=== PATIENT | male | born 1950 | race Caucasian/White ===

== ENCOUNTER 2017-08-08 14:16 | Emergency (ER) | payer MEDICARE, OTHER ==
[~2017-08-08] VITALS: Ht 175.3 cm; Wt 115.0 kg
[~2017-08-08 14:16] MED LIST: HYDR-569 PO
[2017-08-08 15:33] VITALS: BP 148/54
[2017-08-08] MEDS ORDERED: ondansetron 4mg rapidly disintigrating tab PO ONE (15:35)
[2017-08-08] MEDS ORDERED: HYDROcodone/acetaminophen 10/325mg tab PO ONE (15:35)
[2017-08-08] MEDS ORDERED: GABA-532 PO (15:36)
[2017-08-08] MEDS ORDERED: OXYC-150 PO (15:36)
== END 2017-08-08 15:52 | disposition home or self-care (01) ==
LOC: ER 14:17
DX: M79.604 Pain in right leg (principal); E11.41 Type 2 diabetes mellitus with diabetic mononeuropathy; Z79.899 Other long term (current) drug therapy; Z98.890 Other specified postprocedural states
CPT/HCPCS: 99284

== ENCOUNTER 2017-10-22 14:20 | Emergency (ER) | payer MEDICARE, OTHER ==
[~2017-10-22] VITALS: Ht 175.3 cm; Wt 101.8 kg
[~2017-10-22 14:20] MED LIST changes: +GABA-532 PO; +OXYC-150 PO
[2017-10-22] MEDS ORDERED: normal saline 1000ML IV soln IVB ONE (14:30)
[2017-10-22] MEDS ORDERED: ondansetron/PF 4mg/2ml inj IV ONE (14:30)
[2017-10-22] MEDS: morphine 4 MG/ML inj SYRINge IV PRN ×2 (14:44→15:58)
[2017-10-22 14:50] LABS: BASOPHILS # (AUTO) 0.1 X10'3 (0-0.2); BASOPHILS % (AUTO) 0.7 % (0-1); EOSINOPHILS # (AUTO) 0.2 X10'3 (0-0.9); EOSINOPHILS % (AUTO) 1.7 % (0-6); HEMATOCRIT 40.4 % (42.0-52.0); LYMPHOCYTES # (AUTO) 1.7 X10'3 (1.1-4.8); LYMPHOCYTES % (AUTO) 16.6 % (21-51); MEAN CORPUSCULAR HEMOGLOBIN 30.9 PG (27.0-31.0); MEAN CORPUSCULAR HGB CONC 34.6 % (33.0-36.5); MEAN CORPUSCULAR VOLUME 89.3 FL (78-98); MEAN PLATELET VOLUME 7.8 FL (7.4-10.4); MONOCYTES # (AUTO) 0.9 X10'3 (0-0.9); MONOCYTES % (AUTO) 8.4 % (2-12); NEUTROPHILS # (AUTO) 7.6 X10'3 (1.8-7.7); NEUTROPHILS % (AUTO) 72.6 % (42-75); PLATELET COUNT 346 X10'3 (140-440); RED BLOOD COUNT 4.53 X10'6 (4.70-6.10); RED CELL DISTRIBUTION WIDTH 13.9 % (11.5-14.5); WHITE BLOOD COUNT 10.5 X10'3 (4.5-11.0)
[2017-10-22] MEDS ORDERED: methylnaltrexone br 12mg/0.6ml inj***SubQ only SQ ONE (15:45)
[2017-10-22] MEDS ORDERED: lactulose 20gm/30ml cup PO ONE (15:45)
[2017-10-22 16:11] LABS: ALANINE AMINOTRANSFERASE 21 U/L (12-78); ALBUMIN 3.4 G/DL (3.4-5.0); ALBUMIN/GLOBULIN RATIO 0.8 (1.1-1.5); ALKALINE PHOSPHATASE 74 IU/L (46-116); ANION GAP 11 (8-16); ASPARTATE AMINO TRANSFERASE 15 U/L (10-37); BILIRUBIN,TOTAL 0.4 MG/DL (0.1-1.0); BLOOD UREA NITROGEN 29 MG/DL (7-18); BUN/CREATININE RATIO 23.8 (5.4-32.0); CALCIUM 9.6 MG/DL (8.5-10.1); CHLORIDE 100 MMOL/L (99-107); CREATININE 1.22 MG/DL (0.60-1.10); GLUCOSE 151 MG/DL (70-104); LIPASE 52 U/L (73-393); POTASSIUM 3.9 MMOL/L (3.5-5.1); SODIUM 137 MMOL/L (135-145); TOTAL CARBON DIOXIDE 26.4 MMOL/L (24-32); TOTAL PROTEIN 7.6 G/DL (6.4-8.2); eGFR 59 ML/MIN
[2017-10-22] MEDS ORDERED: POLY17PO10 PO (16:29)
[2017-10-22 16:44] VITALS: BP 144/71
== END 2017-10-22 16:45 | disposition home or self-care (01) ==
LOC: ER 14:20
DX: K59.03 Drug induced constipation (principal); T40.605A Adverse effect of unspecified narcotics, initial encounter; G89.29 Other chronic pain; M54.9 Dorsalgia, unspecified; I10 Essential (primary) hypertension; R11.2 Nausea with vomiting, unspecified; R06.02 Shortness of breath; I25.2 Old myocardial infarction; E11.9 Type 2 diabetes mellitus without complications; Z98.890 Other specified postprocedural states; Z79.899 Other long term (current) drug therapy; Z88.8 Allergy status to other drugs, medicaments and biological substances; Y92.89 Other specified places as the place of occurrence of the external cause
CPT/HCPCS: 36415; 71045; 74018; 80053; 83690; 84484; 85025; 93005; 96361; 96372; 96374; 96375; 96376; 99285; J2270; J2405; J7030

== ENCOUNTER 2017-12-16 16:28 | Inpatient (IN) | payer MEDICARE, OTHER ==
[~2017-12-16] VITALS: Ht 177.8 cm; Wt 100.0 kg
[~2017-12-16 16:28] MED LIST changes: +HYDR-4383 PO; -HYDR-569 PO
[2017-12-16] MEDS ORDERED: diazepam 5mg tablet PO ONE (17:25)
[2017-12-16] MEDS ORDERED: ketorolac trometh inj. 60 MG/2 ML VIAL IM ONE (17:25)
[2017-12-16] MEDS ORDERED: oxyCODONE/APAP 10/325mg tablet PO ONE (17:25)
[2017-12-16 17:53] LABS: BASOPHILS % (AUTO) 0.4 % (0-1); EOSINOPHILS # (AUTO) 0.3 X10'3 (0-0.9); EOSINOPHILS % (AUTO) 2.5 % (0-6); HEMATOCRIT 38.3 % (42.0-52.0); HEMOGLOBIN 12.8 g/dl (14.0-17.9); LYMPHOCYTES # (AUTO) 2.2 X10'3 (1.1-4.8); LYMPHOCYTES % (AUTO) 20.8 % (21-51); MEAN CORPUSCULAR HEMOGLOBIN 29.9 PG (27.0-31.0); MEAN CORPUSCULAR HGB CONC 33.5 % (33.0-36.5); MEAN CORPUSCULAR VOLUME 89.4 FL (78-98); MEAN PLATELET VOLUME 7.6 FL (7.4-10.4); MONOCYTES % (AUTO) 9.4 % (2-12); NEUTROPHILS # (AUTO) 7.2 X10'3 (1.8-7.7); NEUTROPHILS % (AUTO) 66.9 % (42-75); PLATELET COUNT 359 X10'3 (140-440); RED BLOOD COUNT 4.28 X10'6 (4.70-6.10); WHITE BLOOD COUNT 10.7 X10'3 (4.5-11.0)
[2017-12-16 18:01] LABS: ALANINE AMINOTRANSFERASE 20 U/L (12-78); ALBUMIN 3.2 G/DL (3.4-5.0); ALBUMIN/GLOBULIN RATIO 0.8 (1.1-1.5); ALKALINE PHOSPHATASE 83 IU/L (46-116); ANION GAP 9 (8-16); ASPARTATE AMINO TRANSFERASE 15 U/L (10-37); BILIRUBIN,TOTAL 0.3 MG/DL (0.1-1.0); BLOOD UREA NITROGEN 26 MG/DL (7-18); BUN/CREATININE RATIO 21.1 (5.4-32.0); CALCIUM 9.8 MG/DL (8.5-10.1); CHLORIDE 100 MMOL/L (99-107); CREATININE 1.23 MG/DL (0.60-1.10); GLUCOSE 254 MG/DL (70-104); POTASSIUM 5.3 MMOL/L (3.5-5.1); SODIUM 136 MMOL/L (135-145); TOTAL CARBON DIOXIDE 27.4 MMOL/L (24-32); TOTAL PROTEIN 7.2 G/DL (6.4-8.2); eGFR 59 ML/MIN
[2017-12-16 18:08] LABS: MAGNESIUM 1.9 MG/DL (1.5-2.4)
[2017-12-16] MEDS ORDERED: aspirin 325mg tablet PO ONE ×2 (18:30→21:15)
[2017-12-16] MEDS ORDERED: normal saline 1000ML IV soln IVB ONE (19:25)
[2017-12-16] MEDS ORDERED: iohexol 350MG/ML 100ml bottle IV ONE (19:52)
[2017-12-16] MEDS ORDERED: PANT40TA4 PO (19:54)
[2017-12-16] MEDS ORDERED: METO25TA6 PO (19:54)
[2017-12-16] MEDS ORDERED: FINA5TAB11 PO (19:54)
[2017-12-16] MEDS ORDERED: IBUP-1986 PO (19:54)
[2017-12-16] MEDS ORDERED: GLIP5TAB13 PO (19:54)
[2017-12-16] MEDS ORDERED: DULO60CA64 PO (19:54)
[2017-12-16] MEDS ORDERED: dextrose 50%-water 50ml dispensing syringe IV PRN ×2 (21:10)
[2017-12-16] MEDS ORDERED: MESSAGE TO PHARMACY PO ONE (21:10)
[2017-12-16] MEDS ORDERED: ondansetron/PF 4mg/2ml inj IV PRN (21:10)
[2017-12-16] MEDS ORDERED: acetaminophen 325mg tablet PO PRN (21:10)
[2017-12-16] MEDS ORDERED: magnesium hydroxide 30ml (MOM) UD suspension PO PRN (21:10)
[2017-12-16] MEDS ORDERED: mag hydrox/Alum hydrox/simeth 30ml oral suspension PO PRN (21:10)
[2017-12-16] MEDS ORDERED: dextrose ORAL solution 15 GM/59 ML bottle PO PRN ×2 (21:10)
[2017-12-16] MEDS ORDERED: glucagon, human recombinant 1mg kit SUBCUT PRN (21:10)
[2017-12-16 21:50] LABS: HEMOGLOBIN A1C 8.8 % (4.5-6.2)
[2017-12-16 22:00] VITALS: BP 152/86
[2017-12-16] MEDS ORDERED: oxyCODONE/APAP 10/325mg tablet PO PRN (22:05)
[2017-12-17] MEDS ORDERED: oxyCODONE/APAP 10/325mg tablet PO PRN
[2017-12-17] MEDS: oxyCODONE/APAP 10/325mg tablet PO PRN ×5 (02:41→22:30)
[2017-12-17 05:00] VITALS: BP 154/79
[2017-12-17 06:20] LABS: BASOPHILS # (AUTO) 0.1 X10'3 (0-0.2); BASOPHILS % (AUTO) 0.8 % (0-1); EOSINOPHILS # (AUTO) 0.5 X10'3 (0-0.9); EOSINOPHILS % (AUTO) 5.5 % (0-6); HEMATOCRIT 36.2 % (42.0-52.0); HEMOGLOBIN 12.1 g/dl (14.0-17.9); LYMPHOCYTES # (AUTO) 2.5 X10'3 (1.1-4.8); LYMPHOCYTES % (AUTO) 27.4 % (21-51); MEAN CORPUSCULAR HEMOGLOBIN 30.2 PG (27.0-31.0); MEAN CORPUSCULAR HGB CONC 33.6 % (33.0-36.5); MEAN CORPUSCULAR VOLUME 89.9 FL (78-98); MEAN PLATELET VOLUME 7.9 FL (7.4-10.4); MONOCYTES # (AUTO) 0.8 X10'3 (0-0.9); MONOCYTES % (AUTO) 9.3 % (2-12); NEUTROPHILS # (AUTO) 5.1 X10'3 (1.8-7.7); PLATELET COUNT 326 X10'3 (140-440); RED BLOOD COUNT 4.02 X10'6 (4.70-6.10); RED CELL DISTRIBUTION WIDTH 13.8 % (11.5-14.5)
[2017-12-17 06:34] LABS: ALANINE AMINOTRANSFERASE 20 U/L (12-78); ALBUMIN 2.7 G/DL (3.4-5.0); ALBUMIN/GLOBULIN RATIO 0.7 (1.1-1.5); ALKALINE PHOSPHATASE 77 IU/L (46-116); ANION GAP 9 (8-16); ASPARTATE AMINO TRANSFERASE 14 U/L (10-37); BILIRUBIN,TOTAL 0.4 MG/DL (0.1-1.0); BLOOD UREA NITROGEN 28 MG/DL (7-18); BUN/CREATININE RATIO 21.4 (5.4-32.0); CALCIUM 8.9 MG/DL (8.5-10.1); CHLORIDE 99 MMOL/L (99-107); CREATININE 1.31 MG/DL (0.60-1.10); GLUCOSE 218 MG/DL (70-104); POTASSIUM 4.3 MMOL/L (3.5-5.1); SODIUM 136 MMOL/L (135-145); TOTAL CARBON DIOXIDE 27.7 MMOL/L (24-32); TOTAL PROTEIN 6.5 G/DL (6.4-8.2); eGFR 54 ML/MIN
[2017-12-17] MEDS: metoprolol tartrate 25mg tablet PO SCH ×2 (07:24→20:11)
[2017-12-17] MEDS: finasteride 5mg tablet PO SCH (07:24)
[2017-12-17] MEDS: pantoprazole 40mg Tablet.DR PO SCH (07:24)
[2017-12-17] MEDS: gabapentin 300mg capsule PO SCH ×3 (07:24→20:11)
[2017-12-17] MEDS: duloxetine 30mg CAPSULE.DR PO SCH (07:24)
[2017-12-17] MEDS: heparin, porcine 5000 units/ml vial SQ SCH ×2 (07:25→20:11)
[2017-12-17] MEDS ORDERED: DULOXETINE HCL PO SCH (08:00)
[2017-12-17] MEDS ORDERED: aspirin 325mg tablet PO SCH (08:30)
[2017-12-17] MEDS: aspirin 81mg tablet.DR PO SCH ×2 (08:30→10:07)
[2017-12-17 09:06] LABS: CHOL/HDL RATIO 8.2 (0.00-4.99); CHOLESTEROL 247 MG/DL (0-200); HDL CHOLESTEROL 30 MG/DL (35-60); LDL CHOLESTEROL 146 MG/DL (50-100); TRIGLYCERIDES 365 MG/DL (20-135)
[2017-12-17] MEDS ORDERED: CAFFEINE CITRATE 60 MG/3 ML injection vial IV PRN (09:45)
[2017-12-17] MEDS ORDERED: regadenoson 0.4mg/5ml syringe IV ONE (09:45)
[2017-12-17] MEDS ORDERED: metoprolol tartrate 1mg/ml inj IV PRN (09:45)
[2017-12-17] MEDS ORDERED: nitroGLYCERIN 0.4mg SUBLingual tab SL PRN (09:45)
[2017-12-17 10:00] VITALS: BP 143/88
[2017-12-17] MEDS ORDERED: pneumococcal 23-VAL P-sac vacc 25 mcg/0.5ml vial IMVAC ONE (10:00)
[2017-12-17] MEDS: atorvastatin 20mg tablet PO SCH (10:07)
[2017-12-17] MEDS: insulin Lispro (HumaLOG) vial - multi-dose SQ SCH ×3 (10:09→18:48)
[2017-12-17 14:00] VITALS: BP 133/72
[2017-12-17 18:00] VITALS: BP 136/60
[2017-12-17] MEDS: insulin glargine (Lantus) pen - multi-dose SQ SCH (21:17)
[2017-12-17 22:00] VITALS: BP 125/69
[2017-12-18] VITALS (11 sets, daily range): BP systolic 111–185; BP diastolic 61–85
[2017-12-18] MEDS: oxyCODONE/APAP 10/325mg tablet PO PRN ×5 (02:01→20:27)
[2017-12-18 05:49] LABS: HEMATOCRIT 36.5 % (42.0-52.0); HEMOGLOBIN 12.5 g/dl (14.0-17.9); MEAN CORPUSCULAR HEMOGLOBIN 30.4 PG (27.0-31.0); MEAN CORPUSCULAR HGB CONC 34.2 % (33.0-36.5); MEAN CORPUSCULAR VOLUME 88.9 FL (78-98); RED BLOOD COUNT 4.11 X10'6 (4.70-6.10); WHITE BLOOD COUNT 8.5 X10'3 (4.5-11.0)
[2017-12-18 05:50] LABS: BASOPHILS # (AUTO) 0.1 X10'3 (0-0.2); BASOPHILS % (AUTO) 0.6 % (0-1); EOSINOPHILS # (AUTO) 0.5 X10'3 (0-0.9); EOSINOPHILS % (AUTO) 5.5 % (0-6); LYMPHOCYTES # (AUTO) 2.4 X10'3 (1.1-4.8); LYMPHOCYTES % (AUTO) 28.4 % (21-51); MEAN PLATELET VOLUME 7.9 FL (7.4-10.4); MONOCYTES # (AUTO) 0.7 X10'3 (0-0.9); MONOCYTES % (AUTO) 8.2 % (2-12); NEUTROPHILS # (AUTO) 4.8 X10'3 (1.8-7.7); NEUTROPHILS % (AUTO) 57.3 % (42-75); PLATELET COUNT 349 X10'3 (140-440); RED CELL DISTRIBUTION WIDTH 12.9 % (11.5-14.5)
[2017-12-18 06:01] LABS: ALANINE AMINOTRANSFERASE 20 U/L (12-78); ALBUMIN 2.8 G/DL (3.4-5.0); ALBUMIN/GLOBULIN RATIO 0.7 (1.1-1.5); ALKALINE PHOSPHATASE 81 IU/L (46-116); ANION GAP 11 (8-16); ASPARTATE AMINO TRANSFERASE 16 U/L (10-37); BILIRUBIN,TOTAL 0.3 MG/DL (0.1-1.0); BLOOD UREA NITROGEN 27 MG/DL (7-18); CALCIUM 8.9 MG/DL (8.5-10.1); CHLORIDE 98 MMOL/L (99-107); CREATININE 1.23 MG/DL (0.60-1.10); GLUCOSE 194 MG/DL (70-104); POTASSIUM 4.1 MMOL/L (3.5-5.1); SODIUM 136 MMOL/L (135-145); TOTAL CARBON DIOXIDE 26.8 MMOL/L (24-32); TOTAL PROTEIN 6.7 G/DL (6.4-8.2); eGFR 59 ML/MIN
[2017-12-18] MEDS: gabapentin 300mg capsule PO SCH ×3 (08:00→21:35)
[2017-12-18] MEDS ORDERED: CAFFEINE CITRATE 60 MG/3 ML injection vial IV ONE (09:32)
[2017-12-18] MEDS ORDERED: regadenoson 0.4mg/5ml syringe IV ONE ×2 (09:32→09:45)
[2017-12-18] MEDS ORDERED: pneumococcal 23-VAL P-sac vacc 25 mcg/0.5ml vial IMVAC ONE (10:00)
[2017-12-18] MEDS: atorvastatin 20mg tablet PO SCH (11:30)
[2017-12-18] MEDS: duloxetine 30mg CAPSULE.DR PO SCH (11:30)
[2017-12-18] MEDS: pantoprazole 40mg Tablet.DR PO SCH (11:32)
[2017-12-18] MEDS: metoprolol tartrate 25mg tablet PO SCH ×2 (11:32→20:28)
[2017-12-18] MEDS: finasteride 5mg tablet PO SCH (11:32)
[2017-12-18] MEDS: aspirin 81mg tablet.DR PO SCH (11:33)
[2017-12-18] MEDS: heparin, porcine 5000 units/ml vial SQ SCH ×2 (11:33→20:28)
[2017-12-18] MEDS: insulin Lispro (HumaLOG) vial - multi-dose SQ SCH ×2 (13:47→18:54)
[2017-12-18] MEDS: insulin glargine (Lantus) pen - multi-dose SQ SCH (21:34)
[2017-12-18] MEDS: diazepam 5mg tablet PO SCH (21:35)
[2017-12-19] MEDS: oxyCODONE/APAP 10/325mg tablet PO PRN ×5 (01:38→21:27)
[2017-12-19 05:00] VITALS: BP 126/66
[2017-12-19 07:31] LABS: BASOPHILS % (AUTO) 0.6 % (0-1); EOSINOPHILS # (AUTO) 0.4 X10'3 (0-0.9); EOSINOPHILS % (AUTO) 4.7 % (0-6); HEMOGLOBIN 13.1 g/dl (14.0-17.9); LYMPHOCYTES # (AUTO) 2.2 X10'3 (1.1-4.8); LYMPHOCYTES % (AUTO) 27.4 % (21-51); MEAN CORPUSCULAR HEMOGLOBIN 30.5 PG (27.0-31.0); MEAN CORPUSCULAR HGB CONC 34.5 % (33.0-36.5); MEAN CORPUSCULAR VOLUME 88.4 FL (78-98); MONOCYTES # (AUTO) 0.7 X10'3 (0-0.9); MONOCYTES % (AUTO) 8.9 % (2-12); NEUTROPHILS # (AUTO) 4.6 X10'3 (1.8-7.7); NEUTROPHILS % (AUTO) 58.4 % (42-75); PLATELET COUNT 370 X10'3 (140-440); RED CELL DISTRIBUTION WIDTH 12.6 % (11.5-14.5); WHITE BLOOD COUNT 7.9 X10'3 (4.5-11.0)
[2017-12-19 07:38] LABS: ALANINE AMINOTRANSFERASE 20 U/L (12-78); ALBUMIN/GLOBULIN RATIO 0.8 (1.1-1.5); ALKALINE PHOSPHATASE 79 IU/L (46-116); ANION GAP 9 (8-16); ASPARTATE AMINO TRANSFERASE 18 U/L (10-37); BILIRUBIN,TOTAL 0.4 MG/DL (0.1-1.0); BLOOD UREA NITROGEN 25 MG/DL (7-18); BUN/CREATININE RATIO 19.1 (5.4-32.0); CALCIUM 9.6 MG/DL (8.5-10.1); CHLORIDE 99 MMOL/L (99-107); CREATININE 1.31 MG/DL (0.60-1.10); GLUCOSE 175 MG/DL (70-104); POTASSIUM 4.8 MMOL/L (3.5-5.1); SODIUM 137 MMOL/L (135-145); TOTAL CARBON DIOXIDE 28.9 MMOL/L (24-32); eGFR 54 ML/MIN
[2017-12-19] MEDS: duloxetine 30mg CAPSULE.DR PO SCH (08:25)
[2017-12-19] MEDS: atorvastatin 20mg tablet PO SCH (08:26)
[2017-12-19] MEDS: metoprolol tartrate 25mg tablet PO SCH ×2 (08:29→20:04)
[2017-12-19] MEDS: pantoprazole 40mg Tablet.DR PO SCH (08:31)
[2017-12-19] MEDS: finasteride 5mg tablet PO SCH (08:31)
[2017-12-19] MEDS: gabapentin 300mg capsule PO SCH ×3 (08:31→21:27)
[2017-12-19] MEDS: heparin, porcine 5000 units/ml vial SQ SCH ×2 (08:33→20:04)
[2017-12-19] MEDS: aspirin 81mg tablet.DR PO SCH (08:33)
[2017-12-19] MEDS: insulin Lispro (HumaLOG) vial - multi-dose SQ SCH ×3 (08:48→18:47)
[2017-12-19 10:00] VITALS: BP 132/75
[2017-12-19 17:00] VITALS: BP 90/56
[2017-12-19 20:01] VITALS: BP 116/67
[2017-12-19] MEDS: diazepam 5mg tablet PO SCH (21:27)
[2017-12-19] MEDS: insulin glargine (Lantus) pen - multi-dose SQ SCH (21:29)
[2017-12-19 22:00] VITALS: BP 97/50
[2017-12-20] MEDS: oxyCODONE/APAP 10/325mg tablet PO PRN ×4 (01:18→15:40)
[2017-12-20 06:00] VITALS: BP 127/75
[2017-12-20] MEDS: heparin, porcine 5000 units/ml vial SQ SCH (08:03)
[2017-12-20] MEDS: aspirin 81mg tablet.DR PO SCH (08:03)
[2017-12-20] MEDS: gabapentin 300mg capsule PO SCH ×2 (08:03→13:04)
[2017-12-20] MEDS: pantoprazole 40mg Tablet.DR PO SCH (08:03)
[2017-12-20] MEDS: duloxetine 30mg CAPSULE.DR PO SCH (08:03)
[2017-12-20] MEDS: atorvastatin 20mg tablet PO SCH (08:03)
[2017-12-20] MEDS: metoprolol tartrate 25mg tablet PO SCH (08:03)
[2017-12-20] MEDS: finasteride 5mg tablet PO SCH (08:03)
[2017-12-20 08:10] LABS: BASOPHILS # (AUTO) 0.1 X10'3 (0-0.2); BASOPHILS % (AUTO) 0.9 % (0-1); EOSINOPHILS # (AUTO) 0.5 X10'3 (0-0.9); HEMATOCRIT 39.5 % (42.0-52.0); HEMOGLOBIN 13.6 g/dl (14.0-17.9); LYMPHOCYTES # (AUTO) 2.4 X10'3 (1.1-4.8); LYMPHOCYTES % (AUTO) 22.4 % (21-51); MEAN CORPUSCULAR HEMOGLOBIN 30.7 PG (27.0-31.0); MEAN CORPUSCULAR HGB CONC 34.4 % (33.0-36.5); MEAN CORPUSCULAR VOLUME 89.2 FL (78-98); MEAN PLATELET VOLUME 8.3 FL (7.4-10.4); MONOCYTES # (AUTO) 0.8 X10'3 (0-0.9); MONOCYTES % (AUTO) 7.2 % (2-12); NEUTROPHILS % (AUTO) 64.5 % (42-75); PLATELET COUNT 379 X10'3 (140-440); RED BLOOD COUNT 4.44 X10'6 (4.70-6.10); RED CELL DISTRIBUTION WIDTH 12.9 % (11.5-14.5); WHITE BLOOD COUNT 10.8 X10'3 (4.5-11.0)
[2017-12-20] MEDS: insulin Lispro (HumaLOG) vial - multi-dose SQ SCH ×2 (08:14→13:08)
[2017-12-20 08:30] LABS: ALANINE AMINOTRANSFERASE 22 U/L (12-78); ALBUMIN 3.2 G/DL (3.4-5.0); ALBUMIN/GLOBULIN RATIO 0.7 (1.1-1.5); ALKALINE PHOSPHATASE 86 IU/L (46-116); ANION GAP 12 (8-16); ASPARTATE AMINO TRANSFERASE 22 U/L (10-37); BILIRUBIN,TOTAL 0.3 MG/DL (0.1-1.0); BLOOD UREA NITROGEN 32 MG/DL (7-18); BUN/CREATININE RATIO 21.3 (5.4-32.0); CALCIUM 9.4 MG/DL (8.5-10.1); CHLORIDE 96 MMOL/L (99-107); GLUCOSE 209 MG/DL (70-104); POTASSIUM 4.5 MMOL/L (3.5-5.1); SODIUM 133 MMOL/L (135-145); TOTAL CARBON DIOXIDE 24.9 MMOL/L (24-32); TOTAL PROTEIN 7.5 G/DL (6.4-8.2); eGFR 47 ML/MIN
[2017-12-20 10:00] VITALS: BP 95/57
[2017-12-20] MEDS ORDERED: VAL5T PO (14:22)
[2017-12-20] MEDS ORDERED: METO25TA6 PO (14:22)
== END 2017-12-20 15:55 | disposition short-term general hospital (02) | DRG 552 ==
LOC: ER 16:29 → ED HOLD 21:06 → ORTHO 4S 21:51
PROVIDERS: ADMIT Internal Medicine; ATTEND Family Medicine
PROC: B32T1ZZ Computerized Tomography (CT Scan) of Left Pulmonary Artery using Low Osmolar Contrast (ICD-10-PCS; 2017-12-16)
PROC: B3201ZZ Computerized Tomography (CT Scan) of Thoracic Aorta using Low Osmolar Contrast (ICD-10-PCS; 2017-12-16)
PROC: B32S1ZZ Computerized Tomography (CT Scan) of Right Pulmonary Artery using Low Osmolar Contrast (ICD-10-PCS; 2017-12-16)
PROC: 5A09357 Assistance with Respiratory Ventilation, Less than 24 Consecutive Hours, Continuous Positive Airway Pressure (ICD-10-PCS; principal; 2017-12-18)
PROC: 4A02XM4 Measurement of Cardiac Total Activity, External Approach (ICD-10-PCS; 2017-12-18)
PROC: 3E033HZ Introduction of Radioactive Substance into Peripheral Vein, Percutaneous Approach (ICD-10-PCS; 2017-12-18)
PROC: 3E0234Z Introduction of Serum, Toxoid and Vaccine into Muscle, Percutaneous Approach (ICD-10-PCS; 2017-12-18)
PROC: 3E02340 Introduction of Influenza Vaccine into Muscle, Percutaneous Approach (ICD-10-PCS; 2017-12-19)
DX: M51.36 Other intervertebral disc degeneration, lumbar region (principal); E44.1 Mild protein-calorie malnutrition; M48.061 Spinal stenosis, lumbar region without neurogenic claudication; R07.89 Other chest pain; M47.896 Other spondylosis, lumbar region; G47.33 Obstructive sleep apnea (adult) (pediatric); E11.9 Type 2 diabetes mellitus without complications; E78.5 Hyperlipidemia, unspecified; Z68.31 Body mass index [BMI] 31.0-31.9, adult; G89.29 Other chronic pain; I25.111 Atherosclerotic heart disease of native coronary artery with angina pectoris with documented spasm; I10 Essential (primary) hypertension; N28.9 Disorder of kidney and ureter, unspecified; M54.5 Low back pain; W18.39XA Other fall on same level, initial encounter; R74.8 Abnormal levels of other serum enzymes; I25.10 Atherosclerotic heart disease of native coronary artery without angina pectoris; Z96.612 Presence of left artificial shoulder joint; Z96.643 Presence of artificial hip joint, bilateral; Z96.653 Presence of artificial knee joint, bilateral; I25.2 Old myocardial infarction; Z95.5 Presence of coronary angioplasty implant and graft; Z23 Encounter for immunization; Z79.4 Long term (current) use of insulin; Z79.82 Long term (current) use of aspirin; Z79.01 Long term (current) use of anticoagulants; Z79.899 Other long term (current) drug therapy; Z88.8 Allergy status to other drugs, medicaments and biological substances; Z87.891 Personal history of nicotine dependence; Z82.49 Family history of ischemic heart disease and other diseases of the circulatory system; Z82.5 Family history of asthma and other chronic lower respiratory diseases; Y93.89 Activity, other specified; Y92.89 Other specified places as the place of occurrence of the external cause; Y99.8 Other external cause status
CPT/HCPCS: 36415; 71045; 71275; 72148; 78452; 80053; 80061; 82948; 83036; 83735; 83880; 84484; 85025; 85379; 87070; 90732; 93005; 93017; 93306; 94660; 94760; 96361; 96372; 97110; 97161; 97530; 99285; A9500; J1644; J1815; J1885; Q9967

== ENCOUNTER 2017-12-26 18:23 | Inpatient (IN) | payer MEDICARE, OTHER ==
[~2017-12-26] VITALS: Ht 177.8 cm; Wt 100.0 kg
[~2017-12-26 18:23] MED LIST changes: +DULO60CA64 PO; +FINA5TAB11 PO; -HYDR-4383 PO; +METO25TA6 PO; +PANT40TA4 PO; +VAL5T PO
[2017-12-27 17:45] VITALS: BP 127/68
[2017-12-27 18:00] VITALS: BP 116/68
[2017-12-27] MEDS ORDERED: magnesium hydroxide 30ml (MOM) UD suspension PO PRN (18:15)
[2017-12-27] MEDS ORDERED: mag hydrox/Alum hydrox/simeth 30ml oral suspension PO PRN (18:15)
[2017-12-27] MEDS ORDERED: ondansetron/PF 4mg/2ml inj IV PRN (18:15)
[2017-12-27] MEDS ORDERED: acetaminophen 325mg tablet PO PRN (18:15)
[2017-12-27] MEDS ORDERED: ASPI-1265 PO (18:41)
[2017-12-27] MEDS ORDERED: ATOR40TA PO (18:46)
[2017-12-27] MEDS ORDERED: NORT10CA81 PO (18:48)
[2017-12-27] MEDS ORDERED: OXYC-150 PO (18:51)
[2017-12-27] MEDS ORDERED: POLY17PO10 PO (18:51)
[2017-12-27] MEDS ORDERED: SENN-161 PO (18:52)
[2017-12-27] MEDS ORDERED: DULO-31 PO (18:55)
[2017-12-27] MEDS ORDERED: oxyCODONE/APAP 10/325mg tablet PO PRN (19:50)
[2017-12-27] MEDS: oxyCODONE/APAP 10/325mg tablet PO PRN (19:57)
[2017-12-27 22:00] VITALS: BP 142/82
[2017-12-28] MEDS: oxyCODONE/APAP 10/325mg tablet PO PRN ×3 (00:08→09:00)
[2017-12-28 05:22] LABS: BASOPHILS # (AUTO) 0.1 X10'3 (0-0.2); BASOPHILS % (AUTO) 0.7 % (0-1); EOSINOPHILS # (AUTO) 0.4 X10'3 (0-0.9); EOSINOPHILS % (AUTO) 5.5 % (0-6); HEMATOCRIT 34.9 % (42.0-52.0); HEMOGLOBIN 11.6 g/dl (14.0-17.9); LYMPHOCYTES % (AUTO) 24.4 % (21-51); MEAN CORPUSCULAR HEMOGLOBIN 29.8 PG (27.0-31.0); MEAN CORPUSCULAR HGB CONC 33.4 % (33.0-36.5); MEAN CORPUSCULAR VOLUME 89.4 FL (78-98); MEAN PLATELET VOLUME 7.6 FL (7.4-10.4); MONOCYTES # (AUTO) 0.9 X10'3 (0-0.9); MONOCYTES % (AUTO) 11.3 % (2-12); NEUTROPHILS # (AUTO) 4.7 X10'3 (1.8-7.7); NEUTROPHILS % (AUTO) 58.1 % (42-75); PLATELET COUNT 304 X10'3 (140-440); RED CELL DISTRIBUTION WIDTH 13.5 % (11.5-14.5)
[2017-12-28 06:00] VITALS: BP 102/56
[2017-12-28 06:35] LABS: ALANINE AMINOTRANSFERASE 25 U/L (12-78); ALBUMIN 2.8 G/DL (3.4-5.0); ALBUMIN/GLOBULIN RATIO 0.7 (1.1-1.5); ALKALINE PHOSPHATASE 77 IU/L (46-116); ANION GAP 9 (8-16); ASPARTATE AMINO TRANSFERASE 22 U/L (10-37); BILIRUBIN,TOTAL 0.3 MG/DL (0.1-1.0); BLOOD UREA NITROGEN 26 MG/DL (7-18); BUN/CREATININE RATIO 21.7 (5.4-32.0); CALCIUM 8.6 MG/DL (8.5-10.1); CHLORIDE 98 MMOL/L (99-107); GLUCOSE 214 MG/DL (70-104); SODIUM 134 MMOL/L (135-145); TOTAL CARBON DIOXIDE 27.3 MMOL/L (24-32); TOTAL PROTEIN 6.6 G/DL (6.4-8.2); eGFR 60 ML/MIN
[2017-12-28 10:00] VITALS: BP 102/56
[2017-12-28 10:53] LABS: TROPONIN I < 0.04 NG/ML (0.0-0.05)
[2017-12-28] MEDS ORDERED: dextrose ORAL solution 15 GM/59 ML bottle PO PRN ×2 (11:45)
[2017-12-28] MEDS ORDERED: glucagon, human recombinant 1mg kit SUBCUT PRN (11:45)
[2017-12-28] MEDS ORDERED: MESSAGE TO PHARMACY PO ONE (11:45)
[2017-12-28] MEDS ORDERED: dextrose 50%-water 50ml dispensing syringe IV PRN ×2 (11:45)
[2017-12-28] MEDS ORDERED: duloxetine 30mg CAPSULE.DR PO ONE (12:15)
[2017-12-28] MEDS: oxyCODONE/APAP 10/325mg tablet PO SCH ×3 (12:40→20:26)
[2017-12-28] MEDS: gabapentin 300mg capsule PO SCH ×2 (12:43→20:25)
[2017-12-28] MEDS: duloxetine 30mg CAPSULE.DR PO SCH (12:59)
[2017-12-28] MEDS: insulin Lispro (HumaLOG) vial - multi-dose SQ SCH ×2 (13:43→18:57)
[2017-12-28] MEDS ORDERED: polyethylene glycol 3350 17gm powd pack PO PRN (16:25)
[2017-12-28 18:00] VITALS: BP 129/68
[2017-12-28] MEDS: metoprolol tartrate 25mg tablet PO SCH (20:25)
[2017-12-28] MEDS: docusate sod 100mg capsule PO SCH (20:25)
[2017-12-28] MEDS ORDERED: nortriptyline 25mg capsule PO SCH (21:00)
[2017-12-28] MEDS ORDERED: insulin glargine (Lantus) pen - multi-dose SQ SCH (21:00)
[2017-12-28 22:00] VITALS: BP 118/67
[2017-12-29] MEDS: oxyCODONE/APAP 10/325mg tablet PO SCH ×2 (00:23→05:09)
[2017-12-29 05:00] VITALS: BP 95/46
[2017-12-29 05:25] LABS: BASOPHILS # (AUTO) 0.1 X10'3 (0-0.2); EOSINOPHILS # (AUTO) 0.5 X10'3 (0-0.9); HEMATOCRIT 35.1 % (42.0-52.0); HEMOGLOBIN 11.8 g/dl (14.0-17.9); LYMPHOCYTES # (AUTO) 1.8 X10'3 (1.1-4.8); LYMPHOCYTES % (AUTO) 27.4 % (21-51); MEAN CORPUSCULAR HEMOGLOBIN 30.2 PG (27.0-31.0); MEAN CORPUSCULAR HGB CONC 33.6 % (33.0-36.5); MEAN CORPUSCULAR VOLUME 89.9 FL (78-98); MEAN PLATELET VOLUME 7.4 FL (7.4-10.4); MONOCYTES # (AUTO) 0.8 X10'3 (0-0.9); MONOCYTES % (AUTO) 12.4 % (2-12); NEUTROPHILS # (AUTO) 3.5 X10'3 (1.8-7.7); NEUTROPHILS % (AUTO) 52.2 % (42-75); PLATELET COUNT 309 X10'3 (140-440); RED BLOOD COUNT 3.91 X10'6 (4.70-6.10); RED CELL DISTRIBUTION WIDTH 13.4 % (11.5-14.5); WHITE BLOOD COUNT 6.7 X10'3 (4.5-11.0)
[2017-12-29 05:49] LABS: ALANINE AMINOTRANSFERASE 24 U/L (12-78); ALBUMIN 2.8 G/DL (3.4-5.0); ALBUMIN/GLOBULIN RATIO 0.7 (1.1-1.5); ALKALINE PHOSPHATASE 79 IU/L (46-116); ANION GAP 6 (8-16); ASPARTATE AMINO TRANSFERASE 24 U/L (10-37); BILIRUBIN,TOTAL 0.4 MG/DL (0.1-1.0); BLOOD UREA NITROGEN 20 MG/DL (7-18); BUN/CREATININE RATIO 15.9 (5.4-32.0); CHLORIDE 99 MMOL/L (99-107); CREATININE 1.26 MG/DL (0.60-1.10); GLUCOSE 162 MG/DL (70-104); POTASSIUM 4.1 MMOL/L (3.5-5.1); SODIUM 135 MMOL/L (135-145); TOTAL PROTEIN 6.6 G/DL (6.4-8.2); eGFR 57 ML/MIN
[2017-12-29 06:30] VITALS: BP 119/59
[2017-12-29] MEDS: docusate sod 100mg capsule PO SCH (07:43)
[2017-12-29] MEDS: duloxetine 30mg CAPSULE.DR PO SCH (07:45)
[2017-12-29] MEDS: metoprolol tartrate 25mg tablet PO SCH (07:47)
[2017-12-29] MEDS: gabapentin 300mg capsule PO SCH ×2 (07:48→12:35)
[2017-12-29] MEDS ORDERED: duloxetine 30mg CAPSULE.DR PO SCH (08:00)
[2017-12-29] MEDS ORDERED: non-formulary drug (Atorvastatin Calcium* (Lipitor*) 1 TAB) PO SCH (08:00)
[2017-12-29] MEDS ORDERED: atorvastatin 20mg tablet PO SCH (08:00)
[2017-12-29] MEDS ORDERED: finasteride 5mg tablet PO SCH (08:00)
[2017-12-29] MEDS ORDERED: pantoprazole 40mg Tablet.DR PO SCH (08:00)
[2017-12-29] MEDS ORDERED: aspirin 81mg tab.chew PO SCH (08:00)
[2017-12-29] MEDS ORDERED: magnesium citrate 296ml oral solution PO ONE (08:10)
[2017-12-29] MEDS: insulin Lispro (HumaLOG) vial - multi-dose SQ SCH ×2 (08:23→13:14)
[2017-12-29] MEDS ORDERED: DULO30CA51 PO (09:03)
[2017-12-29 10:00] VITALS: BP 131/84
[2017-12-29] MEDS: oxyCODONE/APAP 10/325mg tablet PO PRN (12:36)
== END 2017-12-29 15:12 | DRG 74 ==
LOC: ORTHO 4S 12-27 17:24
PROVIDERS: ADMIT Internal Medicine; ATTEND Family Medicine
DX: E11.41 Type 2 diabetes mellitus with diabetic mononeuropathy (principal); G47.33 Obstructive sleep apnea (adult) (pediatric); E78.5 Hyperlipidemia, unspecified; I10 Essential (primary) hypertension; N28.9 Disorder of kidney and ureter, unspecified; I25.10 Atherosclerotic heart disease of native coronary artery without angina pectoris; F32.9 Major depressive disorder, single episode, unspecified; G89.29 Other chronic pain; M54.9 Dorsalgia, unspecified; Z88.8 Allergy status to other drugs, medicaments and biological substances; Z79.899 Other long term (current) drug therapy; Z79.82 Long term (current) use of aspirin; Z87.891 Personal history of nicotine dependence
CPT/HCPCS: 36415; 80053; 82948; 84484; 85025; 87070; 93005; 94760; 97110; 97161; 97530; J1815

== ENCOUNTER 2023-10-10 23:42 | Emergency (ER) | payer MEDICARE, MEDICAID ==
[~2023-10-10] VITALS: Ht 175.3 cm; Wt 105.0 kg
[~2023-10-10 23:42] MED LIST changes: +ASPI-1265 PO; +ATOR40TA PO; +DULO30CA52 PO; -DULO60CA64 PO; +LOP25T PO; -METO25TA6 PO; +NORT10CA81 PO; -PANT40TA4 PO; +PANT40TA54 PO; +POLY17PO10 PO; +SENN-263 PO; -VAL5T PO
[2023-10-11] MEDS ORDERED: ondansetron 4mg rapidly disintigrating tab PO ONE
[2023-10-11] MEDS ORDERED: HYDROcodone/acetaminophen 5mg/325mg tablet PO ONE
[2023-10-11 00:25] LABS: BASOPHILS # (AUTO) 0.1 X10'3 (0-0.2); EOSINOPHILS # (AUTO) 0.4 X10'3 (0-0.9); EOSINOPHILS % (AUTO) 3.7 % (0-6); HEMATOCRIT 41.3 % (42.0-52.0); HEMOGLOBIN 13.6 g/dl (14.0-17.9); LYMPHOCYTES # (AUTO) 2.2 X10'3 (1.1-4.8); LYMPHOCYTES % (AUTO) 21.5 % (21-51); MEAN CORPUSCULAR HEMOGLOBIN 29.2 PG (27.0-31.0); MEAN CORPUSCULAR VOLUME 88.5 FL (78-98); MEAN PLATELET VOLUME 8.1 FL (7.4-10.4); MONOCYTES # (AUTO) 0.9 X10'3 (0-0.9); MONOCYTES % (AUTO) 9.2 % (2-12); NEUTROPHILS # (AUTO) 6.7 X10'3 (1.8-7.7); NEUTROPHILS % (AUTO) 64.6 % (42-75); PLATELET COUNT 339 X10'3 (140-440); RED BLOOD COUNT 4.67 X10'6 (4.70-6.10); RED CELL DISTRIBUTION WIDTH 15.2 % (11.5-14.5); WHITE BLOOD COUNT 10.3 X10'3 (4.5-11.0)
[2023-10-11] MEDS: ondansetron 4mg rapidly disintigrating tab PO ONE (00:32)
[2023-10-11] MEDS: HYDROcodone/acetaminophen 5mg/325mg tablet PO ONE ×2 (00:33→02:38)
[2023-10-11 00:44] LABS: BILIRUBIN,URINE NEGATIVE (Neg); CLARITY,URINE SLIGHTLY CLOUDY (Clear); COLOR,URINE YELLOW (Yellow); GLUCOSE, URINE >=1000 mg/dl (Neg); KETONES,URINE NEGATIVE (Neg); LEUKOCYTE ESTERASE ,URINE NEGATIVE (Neg); NITRITES, URINE NEGATIVE (Neg); OCCULT BLOOD,URINE TRACE-INTACT (Neg); PH,URINE 5.5 (4.8-8.0); PROTEIN,URINE 100 mg/dl (Neg); UROBILINOGEN,URINE 0.2 E.U/dL (0.2-1.0)
[2023-10-11 00:44] LABS: ALANINE AMINOTRANSFERASE 24 U/L (12-78); ALBUMIN 3.4 G/DL (3.4-5.0); ALBUMIN/GLOBULIN RATIO 0.8 (1.1-1.5); ALKALINE PHOSPHATASE 96 IU/L (46-116); ANION GAP 10 (8-16); ASPARTATE AMINO TRANSFERASE 14 U/L (10-37); BILIRUBIN,TOTAL 0.4 MG/DL (0.1-1.0); BLOOD UREA NITROGEN 37 MG/DL (7-18); BUN/CREATININE RATIO 23.9 (10.0-20.0); CALCIUM 8.9 MG/DL (8.5-10.1); CHLORIDE 97 MMOL/L (99-107); CREATININE 1.55 MG/DL (0.60-1.10); GLUCOSE 340 MG/DL (70-104); POTASSIUM 4.6 MMOL/L (3.5-5.1); SODIUM 128 MMOL/L (135-145); TOTAL CARBON DIOXIDE 20.8 MMOL/L (24-32); TOTAL PROTEIN 7.8 G/DL (6.4-8.2); eCRCL 42 ML/MIN; eGFR 44 ML/MIN
[2023-10-11 00:47] LABS: LIPASE 33 U/L (16-77)
[2023-10-11 00:48] LABS: UA COLLECTION TYPE URINAL
[2023-10-11 00:49] LABS: MUCUS STRANDS FEW /LPF (Neg); SQUAMOUS EPITHELIAL CELL,UR MODERATE /LPF (FEW)
[2023-10-11 00:50] LABS: BACTERIA,URINE 1+ /HPF (Neg); COARSE GRANULAR CAST 0-3 /LPF (NEGATIVE); RBC,URINE 0-2 /HPF (0-2); WBC,URINE 0-4 /HPF (0-4)
[2023-10-11] MEDS ORDERED: HYDR-3965 PO (01:41)
[2023-10-11] MEDS ORDERED: ONDA-243 PO (01:41)
[2023-10-11] MEDS ORDERED: Insulin ASPART (NovoLOG) pen SQ ONE (01:45)
[2023-10-11] MEDS: insulin regular, human 10 units/0.1 ml syringe SQ ONE (02:05)
[2023-10-11 02:07] VITALS: BP 135/89; PULSE 84; TEMP 98.3; O2SAT 96
[2023-10-11 02:39] VITALS: RESP 16
== END 2023-10-11 02:43 | disposition home or self-care (01) ==
LOC: ER 23:43
DX: E11.65 Type 2 diabetes mellitus with hyperglycemia (principal); R11.10 Vomiting, unspecified; I25.10 Atherosclerotic heart disease of native coronary artery without angina pectoris; I10 Essential (primary) hypertension; Z88.8 Allergy status to other drugs, medicaments and biological substances; Z79.82 Long term (current) use of aspirin; Z79.899 Other long term (current) drug therapy
CPT/HCPCS: 36415; 80053; 81001; 82948; 83690; 84484; 85025; 93005; 99284; J1815

== ENCOUNTER 2024-07-26 01:06 | Inpatient (IN) | payer MEDICARE, MEDICAID ==
[~2024-07-26] VITALS: Ht 175.3 cm; Wt 108.0 kg
[~2024-07-26 01:06] MED LIST changes: +ACET-1008 PO; +ATRIN; +CYCL-920 PO; +DICY10CA88 PO; -DULO30CA52 PO; +DULO60CA65 PO; +FURO40TA4 PO; -GABA-532 PO; +GABA300C PO; +LANTUS SUBCUT; +LISI5TAB22 PO; +NITR0.4T48; +ONDA-243 PO; -SENN-263 PO; +SENN-360 PO
--- NOTE | 2024-07-26 03:02 | Physician Documentation ---
History of Present Illness ~ General Chief Complaint: See Chief Complaint Stated Complaint: LEG PAIN Time Seen by MD: 02:15 Primary Medical Doctor: ANGELICA Oconnell Mode of Arrival: EMS History of Present Illness Initial Comments Reviewed discharge summary 06/2024 UTI metabolic encephalopathy, fecal retention, CAD status post CABG, uncontrolled DM to, uncontrolled hypertension, CKD, found to have pansensitive Proteus mirabilis urinary tract infection. Reviewed orthopedic consultation feels this is an old avulsion fracture of the medial malleolus with intact mortise stable injury recommended with fracture boot and weight-bearing as tolerated He presents today for swelling of his lips. He is also reported to have removal of his lower extremity splint due to being grossly contaminated. He reports his lips have been swollen for the last few hours. He denies any difficulty breathing or swallowing Medication Reconciliation Allergies: Coded Allergies: metformin (Verified Allergy, Unknown, 07/26/24) Scheduled Aspirin (Aspirin), 1 TAB.CHEW PO DAILY, (Reported) Atorvastatin Calcium* (Lipitor*), 1 TAB PO DAILY, (Reported) Dicyclomine Hcl* (Bentyl*), 1 CAP PO TID, (Reported) Duloxetine HCl (Duloxetine HCl), 2 CAP PO HS, (Reported) Finasteride (Finasteride), 1 TAB PO DAILY, (Reported) Furosemide (Furosemide), 1 TAB PO DAILY, (Reported) Gabapentin (Neurontin), 2 CAP PO TID, (Reported) Insulin Glargine,Hum.rec.anlog* (Lantus*), 25 UNITS SUBCUT HS, (Reported) Ipratropium [place] MDI* (Atrovent MDI*), 3 PUFFS TID, (Reported) Lisinopril (Lisinopril), 1 TAB PO DAILY, (Reported) Metoprolol Tartrate* (Lopressor tablet*), 1 TAB PO BID, (Reported) Nortriptyline Hcl (PAMELOR capsule), 50 MG PO HS, (Reported) Oxycodone HCl/Acetaminophen (Percocet 10-325 mg Tablet), 2 TAB PO Q4H, (Rep orted) Pantoprazole Sodium (Pantoprazole Sodium), 1 TAB PO DAILY, (Reported) Polyethylene Glycol 3350* (Miralax*), 1 PKT PO DAILY, (Reported) Sennosides (Senna), 1 TAB PO DAILY, (Reported) Tamsulosin Hcl* (Flomax*), 1 CAP PO DAILY, (Reported) Scheduled PRN Acetaminophen (Tylenol), 1 TAB PO Q4HPRN PRN for pain or fever, (Reported) Cyclobenzaprine HCl (Cyclobenzaprine HCl), 1 TAB PO BID PRN for muscle relaxation, (Reported) ONDANSETRON ODT 4mg tablet (Ondansetron Odt), 1 TAB PO Q6H PRN PRN for nausea/vomiting Miscellaneous Medications Albuterol Sulfate (Ventolin Hfa), (Reported) Nitroglycerin (Nitroglycerin), (Reported) Discontinued Medications Allopurinol* (Allopurinol*), 1 TAB PO DAILY, (Reported) Discontinued Reason: wrong med Past Medical History Past Medical History: Coronary Artery Disease, Hypertension, Diabetes Past Surgical History: angioplasty, orthopedic surgeries Patient History: Patient reports no known family medical history. Alcohol Use: None Lives with: Family Lives In: Home Occupation: retired Review of Systems All Other Systems at this time: Reviewed and Negative Cardiovascular: Denies: chest pain Gastrointestinal: Denies: abdominal pain Physical Exam Physical Exam Vital Signs: Temperature: 98.4, Source: Oral, Heart Rate: 74, Respiratory Rate: 16, BP: 121/60, Pulse Oximetry: 94, Weight: 108.000 Physical Exam HEENT positive angioedema no tongue involvement no respiratory distress Pulmonary clear to auscultation bilaterally Awake alert oriented Lower extremity no edema Skin intact Progress Progress Note I independently interpreted labs in his significant elevation of inflammatory markers Discussed case with hospitalist team who agree with plan for admission Results/Orders Reviewed/noted all lab results: Yes Results/Orders Orders - CARRIE GALICIA MD C4 Serum (07/26/24 02:53) ESR (07/26/24 02:53) Page Hospitalist (07/26/24 03:56) Fill Out Med Reconciliation (07/26/24 03:56) Completed Orders - CARRIE GALICIA MD Cbc/Diff (07/26/24 02:53) BMP (07/26/24 02:53) C-Reactive Protein (07/26/24 02:53) Vital Signs 07/26/24 07/26/24 01:09 01:25 Temp 98.4 Pulse 74 Resp 16 B/P (MAP) 121/60 Pulse Ox 94 Laboratory Tests Test 07/26/24 04:00 White Blood Count 9.3 Red Blood Count 3.61 L Hemoglobin 10.2 L Hematocrit 30.3 L Mean Corpuscular Volume 83.9 Mean Corpuscular Hemoglobin 28.2 Mean Corpuscular Hemoglobin Concent 33.6 Red Cell Distribution Width 15.2 H Platelet Count 336 Mean Platelet Volume 7.0 L Neutrophils (%) (Auto) 58.6 Lymphocytes (%) (Auto) 21.2 Monocytes (%) (Auto) 11.6 Eosinophils (%) (Auto) 7.9 H Basophils (%) (Auto) 0.7 Neutrophils # (Auto) 5.5 Lymphocytes # (Auto) 2.0 Monocytes # (Auto) 1.1 H Eosinophils # (Auto) 0.7 Basophils # (Auto) 0.1 CBC Comment Sodium Level 137 Potassium Level 5.0 Chloride Level 103 Carbon Dioxide Level 25.6 Anion Gap 8 Blood Urea Nitrogen 31 H Creatinine 1.41 H Estimated GFR/1.73 m2 49 BUN/Creatinine Ratio 22.0 H Glucose Level 166 H Calcium Level 8.7 C-Reactive Protein 1.08 H Albumin 2.6 L Chemistry Comments Medical Decision Making Additional info obtained from: old records Differential Diagnosis Angioedema, urticaria allergic reaction anaphylaxis Departure Disposition: ADMITTED INPATIENT Admitted to Inpatient Unit: to hospitalist Impression: Primary Impression: Angio-edema Qualified Codes: T78.3XXA - Angioneurotic edema, initial encounter Referrals: NO PRIMARY CARE PROVIDER (PCP) Signature Scribe Signature: na Attestation: CARRIE Sheppard MD July 26, 2024 03:02
[2024-07-26 04:16] LABS: BASOPHILS # (AUTO) 0.1 X10'3 (0-0.2); BASOPHILS % (AUTO) 0.7 % (0-1); EOSINOPHILS # (AUTO) 0.7 X10'3 (0-0.9); EOSINOPHILS % (AUTO) 7.9 % (0-6); HEMATOCRIT 30.3 % (42.0-52.0); HEMOGLOBIN 10.2 g/dl (14.0-17.9); LYMPHOCYTES % (AUTO) 21.2 % (21-51); MEAN CORPUSCULAR HEMOGLOBIN 28.2 PG (27.0-31.0); MEAN CORPUSCULAR HGB CONC 33.6 g/dL (33.0-36.5); MEAN CORPUSCULAR VOLUME 83.9 FL (78-98); MONOCYTES # (AUTO) 1.1 X10'3 (0-0.9); MONOCYTES % (AUTO) 11.6 % (2-12); NEUTROPHILS # (AUTO) 5.5 X10'3 (1.8-7.7); NEUTROPHILS % (AUTO) 58.6 % (42-75); PLATELET COUNT 336 X10'3 (140-440); RED BLOOD COUNT 3.61 X10'6 (4.70-6.10); RED CELL DISTRIBUTION WIDTH 15.2 % (11.5-14.5); WHITE BLOOD COUNT 9.3 X10'3 (4.5-11.0)
[2024-07-26 04:25] LABS: ALBUMIN 2.6 G/DL (3.4-5.0); ANION GAP 8 (8-16); BLOOD UREA NITROGEN 31 MG/DL (7-18); C-REACTIVE PROTEIN 1.08 MG/DL (0.0-0.5); CALCIUM 8.7 MG/DL (8.5-10.1); CHLORIDE 103 MMOL/L (99-107); CREATININE 1.41 MG/DL (0.60-1.10); GLUCOSE 166 MG/DL (70-104); SODIUM 137 MMOL/L (135-145); TOTAL CARBON DIOXIDE 25.6 MMOL/L (24-32); eCRCL 46 ML/MIN; eGFR 49 ML/MIN
[2024-07-26] MEDS ORDERED: ALLO100T PO (04:44)
[2024-07-26] MEDS ORDERED: ALBU18HF2 (04:44)
[2024-07-26] MEDS ORDERED: TAMS-55 PO (04:49)
[2024-07-26] MEDS ORDERED: cyclobenzaprine 10mg tablet PO PRN (06:15)
[2024-07-26] MEDS ORDERED: acetaminophen 325mg tablet PO PRN ×2 (06:15→06:20)
[2024-07-26] MEDS ORDERED: morphine 2 MG/ML inj. syringe IV PRN ×2 (06:20)
[2024-07-26] MEDS ORDERED: mag hydrox/Alum hydrox/simeth 30ml oral suspension PO PRN (06:20)
[2024-07-26] MEDS ORDERED: magnesium Cl slow-release 64mg tablet PO PRN (06:20)
[2024-07-26] MEDS ORDERED: magnesium sulf-water 2g/50mL 50 ML IV PRN (06:20)
[2024-07-26] MEDS ORDERED: ondansetron/PF 4mg/2ml inj IV PRN (06:20)
[2024-07-26] MEDS ORDERED: potassium Cl 40MEQ/1/2NS 520ml 520 ML IV PRN (06:20)
[2024-07-26] MEDS ORDERED: magnesium hydroxide 30ml (MOM) UD suspension PO PRN (06:20)
[2024-07-26] MEDS ORDERED: docusate sod 100mg capsule PO PRN (06:20)
[2024-07-26] MEDS ORDERED: magnesium sulf-water 4G/100mL 100 ML IV PRN (06:20)
[2024-07-26] MEDS ORDERED: potassium Cl 20 mEq SR tablet PO PRN ×2 (06:20)
--- NOTE | 2024-07-26 07:01 | RADIOLOGY REPORT ---
CHEST RADIOGRAPH Indication: on admission Technique: Single frontal view of the chest was obtained Comparison: DI CHEST,SINGLE VIEW on DOS: 06/18/24 FINDINGS: Lines and Tubes: None Lungs: No focal consolidation. Pleura: No effusion. No pneumothorax. Cardiomediastinal contours: Stable Cardiovascular silhouette. Bones: No acute osseous abnormality. Left shoulder prosthesis. Status post median sternotomy. IMPRESSION: 1. No acute cardiopulmonary disease.
--- NOTE | 2024-07-26 07:17 | HISTORY AND PHYSICAL-Residence ---
History & Physical Providers to CC Resident Creating Document: AVNI ROWLEY, RES ~ History of Present Illness Primary Medical Doctor: ANGELICA Oconnell Reason for Admit\Complaint: Angioedema, and left leg issue History of Present Illness A 73 years old male who was sent out from [facility] postop care for lips swelling and wants to put the soft casting over the left ankle with past medical history of UTI, CAD with s/p CABG, uncontrolled T2 DM, hypertension, CKD stage III, depression, s/p left ankle splint placement for mildly displaced fracture on the left ankle. Pt is poor historian and could not recall the history well in details. Pt has no idea why he was sent here from [facility]. As per ER physician concern, pt needs to be admitted to be monitored to make sure his lisinopril out of the system. He noticed the swollen lips over few days and did not record if he started any new medications and when he started taking lisinopril and gabapentin. He denies nausea vomiting, diarrhea, cramping abdominal pain, hypotension, lightheadedness and dizziness, chest pain pressure discomfort, large tongue and swollen throat with difficulties in breathing. He stated that he took off his soft casting over his left ankle because of the bad smell came out and itchiness. He only have pain on walking over the left ankle. Allergies: Coded Allergies: metformin (Verified Allergy, Unknown, 07/26/24) Home Medications Home Medications Active Ondansetron Odt (Ondansetron HCl) 4 Mg Tab.rapdis 1 Tab PO Q6H PRN PRN 4 Days Reported Flomax* (Tamsulosin HCl) 0.4 Mg Cap.sr.24h 1 Cap PO DAILY 30 Days Ventolin Hfa (Albuterol Sulfate) 90 Mcg Hfa.aer.ad Bentyl* (Dicyclomine HCl) 10 Mg Capsule 1 Cap PO TID 30 Days Tylenol (Acetaminophen) 325 Mg Tablet 1 Tab PO Q4HPRN PRN 24 Days Lantus* (Insulin Glargine) 100 Unit/1 Ml Vial 25 Units SUBCUT HS 30 Days Neurontin (Gabapentin) 300 Mg Capsule 2 Cap PO TID 30 Days Furosemide 40 Mg Tablet 1 Tab PO DAILY 30 Days Duloxetine HCl 60 Mg Capsule.dr 2 Cap PO HS 30 Days Atrovent MDI* (Ipratropium [place]) 17 Mcg/Actuation Aer.w.adap 3 Puffs TID Lisinopril 5 Mg Tablet 1 Tab PO DAILY Nitroglycerin 0.4 Mg Tab.subl Cyclobenzaprine HCl 5 Mg Tablet 1 Tab PO BID PRN Senna (Sennosides) 8.6 Mg Tablet 1 Tab PO DAILY 30 Days Miralax* (Polyethylene Glycol) 1 Packet Packet 1 Pkt PO DAILY Percocet 10-325 mg Tablet (Oxycodone HCl/Acetaminophen) 1 Each Tablet 2 Tab PO Q4H 3 Days PAMELOR capsule (Nortriptyline Hcl) 10 Mg Capsule 50 Mg PO HS Lipitor* (Atorvastatin Calcium) 40 Mg Tablet 1 Tab PO DAILY 30 Days Aspirin 81 Mg Tab.chew 1 Tab.chew PO DAILY Finasteride 5 Mg Tablet 1 Tab PO DAILY Pantoprazole Sodium 40 Mg Tablet.dr 1 Tab PO DAILY Lopressor tablet* (Metoprolol Tartrate) 25 Mg Tablet 1 Tab PO BID Past Medical History Past Medical History UTI, CAD with s/p CABG, uncontrolled T2 DM, hypertension, CKD stage III, depression, Past Surgical History Surgical History Comment s/p left ankle splint placement for mildly displaced fracture on the left ankle. Family History Family History: Patient reports no known family medical history. Past Social History Social History Comment He came from [facility], he is mainly using wheelchair for the ambulatory purposes. Smoking: Quit greater than 1 year Alcohol Use: None Lives with: Family Lives In: Home Occupation: retired ROS All Other Systems: Reviewed and Negative ROS Hours were reviewed, WNL except for the above-mentioned in HPI Cardiovascular: Denies: chest pain Gastrointestinal: Denies: abdominal pain Exam Vitals: Vital Signs Date Time Temp Pulse Resp B/P (MAP) Pulse Ox O2 Delivery O2 Flow Rate FiO2 07/26/24 06:22 98.4 63 18 112/54 (73) 97 0 General: General: Well alert, well oriented, not confused, not agitated, not in acute distress, well cooperated during the physical. HEENT: HEENT: Conjunctive are pink, sclerae clear, no icterus, pupil is equal in both sides, reactive to light, no ear discharge, no pharyngeal erythema or an edema, mouth and lips are dry. Neck: Neck: Supple, no JVD, no lymphadenopathy and thyromegaly. Chest: Lungs:Equal air entry on both lungs, no additional sounds Cardiovascular: Heart: S1-S2 regular sinus rhythm and, regular rate, no gallops, no rubs, no murmurs Abdomen: Abdomen: No visible peristalsis, Bowel sounds present on auscultation, soft, nontender, no guarding, no rigidity Extremities: Extremities: No obvious deformities, no pitting edema bilaterally, capillary refill intact, able to wiggle toes both sides, peripheral pulsations are intact on both sides. Central Nervous System: MEDICAL DIRECTOR OF HOSPICE: No focal neurological deficits, no motor and sensory weakness in all 4 extremities, could move all 4 extremities Musculoskeletal: Musculoskeletal: No joint swelling, deformities, inflammations, and no scoliosis and back tenderness Skin: Skin: No active skin lesions and rashes, Extensive skin excoriation bilateral feet and swollen toes Diagnostic Data Last Recorded Lab Results: 07/26/2439907/26/24399 Advance Care Planning Advanced Care plannin - 30 Minutes Additional Plan A 73 years old male who was sent out from [facility] acute postop care for lips swelling and wants to put the soft casting over the left ankle with past medical history of UTI, CAD with s/p CABG, uncontrolled T2 DM, hypertension, CKD stage III, depression, s/p left ankle splint placement for mildly displaced fracture on the left ankle (medial malleolus). # angioedema -most likely from the lisinopril and gabapentin, which were held for a while -monitor for the development of systemic anaphylaxis, progressive angioedema with respiratory distress. -pending complement C4 levels -elevated CRP # normochromic normocytic anemia -daily CBC monitoring most probably from the early part of LASHELL - will consider to study iron # SIDRA on CKD stage 3-mostly from the renal tubular stasis # selective hypoalbuminemia # hyperglycemia -baseline creatinine is 1.02 -continue I's and O's monitoring and daily CMP check -encourage protein diet -pending HGB A1c, daily monitoring glucose, continue glargine 25 units at night time -medication reconciliation was done and continue appropriately # history of s/p left ankle splint placement for mildly displaced fracture on the left ankle (medial malleolus) # peripheral neuropathy -pain control -held gabapentin wishes a possible potential agent of angioedema -might be beneficial to consider for the orthopedic consultation for the re soft casting after the infections are controlled CODE STATUS: Full code DVT prophylaxis: Sc heparin Analgesia/sedation: Acetaminophen/IV morphine as needed Lines/tubes: Peripheral IV GI prophylaxis: None Nutrition: Heart healthy Prognosis: Guarded Disposition: Continue medical management, continue monitoring angioedema/anaphylaxis development, blood sugar control, PT eval and DC plan. Resident MD attestation: Patient was seen, examined and discussed with attending MD, Dr. Sammie ROWLEY MD Internal Medicine Resident, PGY2 [facility] Attending Physician Attestation Evaluation via HIPAA compliant AV device. I discussed the case with the resident and I agree with the resident's documentation. 73 year-old man who suffered a displaced left medial malleolus fracture that was treated with placement of a cast. The patient inadvertently removed the cast and was sent to the ED for replacement of the cast. He complained of lip swelling at the time of his ED evaluation. The treatment plan includes: Replacement of the patient's cast. An XR left ankle series has been ordered. Lisinopril and gabapentin will be held and the patient observed for progression of lip edema to include the upper airway. Anti-hypertensive therapy with an alternative to lisinopril will be prescribed. Multimodal pain control sans gabapentin. Time spent 50 minutes. Date of Service: July 26, 2024 Billing Provider: BERTIN VALVERDE MD, TIN, RES July 26, 2024 07:17 BERTIN VALVERDE MD July 26, 2024 08:19
[2024-07-26 07:54] LABS: POTASSIUM 4.9 MMOL/L (3.5-5.1)
[2024-07-26] MEDS: K and/or MAG REPLACEMENT MC SCH (08:00)
[2024-07-26] MEDS: tamsulosin 0.4mg capsule PO SCH (08:06)
[2024-07-26] MEDS: heparin, porcine 5000 units/ml vial SQ SCH (08:06)
[2024-07-26] MEDS: sennosides 8.6mg tablet PO SCH (08:06)
[2024-07-26] MEDS: aspirin 81mg tab.chew PO SCH (08:06)
[2024-07-26] MEDS: dicyclomine 10 MG capsule PO SCH (08:06)
[2024-07-26] MEDS: metoprolol tartrate 25mg tablet PO SCH (08:07)
[2024-07-26] MEDS: atorvastatin 20mg tablet PO SCH (08:07)
[2024-07-26] MEDS: finasteride 5mg tablet PO SCH (08:08)
[2024-07-26] MEDS: polyethylene glycol 3350 17gm powd pack PO SCH (08:08)
--- NOTE | 2024-07-26 09:18 | RADIOLOGY REPORT ---
CLINICAL INDICATION: History of fracture TECHNIQUE: 3 radiographic views of the left ankle were obtained. Comparison: DI ANKLE, COMPLETE(3VW MIN) on DOS: 06/21/24 FINDINGS/IMPRESSION: Chronic bilateral malleolus fracture. Soft tissue calcifications are visualized in the posterior soft tissues of the ankle.
[2024-07-26 11:00] VITALS: BP 108/37; PULSE 69; RESP 18; TEMP 98; O2SAT 98
[2024-07-26 14:12] VITALS: RESP 16
[2024-07-26] MEDS ORDERED: glucagon, human recombinant 1mg kit SUBCUT PRN (14:45)
[2024-07-26] MEDS ORDERED: dextrose 50%-water 50ml dispensing syringe IV PRN ×2 (14:45)
[2024-07-26] MEDS ORDERED: diazepam inj 5 MG/ML inj. IV PRN (14:45)
[2024-07-26] MEDS ORDERED: DEXTROSE 15 GM of carb/4 tabs (each vial/BOTTLE has 4 tablets) PO PRN ×2 (14:45)
[2024-07-26] MEDS: ringers solution, lacted 1,000 ML IV ONE (15:26)
[2024-07-26] MEDS: INSULIN LISPRO 100 UNIT/ML INSULN.PEN MULTI-DOSE SQ SCH (17:00)
[2024-07-26] MEDS: insulin regular, human U-100 10ml vial - multi-dose IV ONE (17:51)
[2024-07-26 18:00] VITALS: BP 131/74; PULSE 77; RESP 18; TEMP 97.1; O2SAT 97
[2024-07-26 20:01] VITALS: RESP 16
[2024-07-26] MEDS: duloxetine 30mg CAPSULE.DR PO SCH (20:25)
[2024-07-26] MEDS: nortriptyline 25mg capsule PO SCH (20:38)
[2024-07-26] MEDS: oxyCODONE/APAP 10/325mg tablet PO PRN (20:39)
[2024-07-26] MEDS ORDERED: nortriptyline 10mg capsule PO SCH (21:00)
[2024-07-26] MEDS: insulin glargine (Lantus) pen - multi-dose SQ SCH (22:01)
[2024-07-27 06:00] VITALS: BP 127/68; PULSE 70; RESP 13; TEMP 98; O2SAT 94
[2024-07-27 06:02] LABS: BASOPHILS # (AUTO) 0.1 X10'3 (0-0.2); BASOPHILS % (AUTO) 0.8 % (0-1); EOSINOPHILS # (AUTO) 0.5 X10'3 (0-0.9); EOSINOPHILS % (AUTO) 6.5 % (0-6); HEMATOCRIT 30.7 % (42.0-52.0); HEMOGLOBIN 9.9 g/dl (14.0-17.9); LYMPHOCYTES # (AUTO) 2.1 X10'3 (1.1-4.8); LYMPHOCYTES % (AUTO) 28.1 % (21-51); MEAN CORPUSCULAR HEMOGLOBIN 27.5 PG (27.0-31.0); MEAN CORPUSCULAR HGB CONC 32.4 g/dL (33.0-36.5); MEAN CORPUSCULAR VOLUME 84.8 FL (78-98); MEAN PLATELET VOLUME 7.3 FL (7.4-10.4); MONOCYTES # (AUTO) 0.9 X10'3 (0-0.9); MONOCYTES % (AUTO) 12.6 % (2-12); NEUTROPHILS # (AUTO) 3.8 X10'3 (1.8-7.7); PLATELET COUNT 345 X10'3 (140-440); RED BLOOD COUNT 3.62 X10'6 (4.70-6.10); RED CELL DISTRIBUTION WIDTH 14.9 % (11.5-14.5); WHITE BLOOD COUNT 7.4 X10'3 (4.5-11.0)
[2024-07-27 06:20] LABS: ALANINE AMINOTRANSFERASE 16 U/L (12-78); ALBUMIN 2.4 G/DL (3.4-5.0); ALBUMIN/GLOBULIN RATIO 0.6 (1.1-1.5); ALKALINE PHOSPHATASE 97 IU/L (46-116); ANION GAP 7 (8-16); ASPARTATE AMINO TRANSFERASE 15 U/L (10-37); BILIRUBIN,TOTAL 0.2 MG/DL (0.1-1.0); BLOOD UREA NITROGEN 24 MG/DL (7-18); BUN/CREATININE RATIO 18.3 (10.0-20.0); CALCIUM 8.5 MG/DL (8.5-10.1); CHLORIDE 105 MMOL/L (99-107); CHOL/HDL RATIO 2.8 (0.00-4.99); CHOLESTEROL 119 MG/DL (0-200); CREATININE 1.31 MG/DL (0.60-1.10); GLUCOSE 95 MG/DL (70-104); HDL CHOLESTEROL 42 MG/DL (35-60); LDL CHOLESTEROL 51 MG/DL (50-100); MAGNESIUM 1.8 MG/DL (1.5-2.4); POTASSIUM 4.6 MMOL/L (3.5-5.1); SODIUM 140 MMOL/L (135-145); TOTAL CARBON DIOXIDE 27.9 MMOL/L (24-32); TOTAL PROTEIN 6.2 G/DL (6.4-8.2); TRIGLYCERIDES 132 MG/DL (20-135); eCRCL 49 ML/MIN; eGFR 53 ML/MIN
[2024-07-27 10:00] VITALS: BP 102/44; PULSE 64; RESP 18; TEMP 97; O2SAT 94
[2024-07-27] MEDS ORDERED: haloperidol lactate 5mg/ml inj IM PRN (11:20)
[2024-07-27] MEDS ORDERED: diphenhydrAMINE 25mg capsule PO PRN (12:10)
[2024-07-27] MEDS ORDERED: epiNEPHrine 1 mg/ml inj IM PRN (12:10)
--- NOTE | 2024-07-27 12:14 | PROGRESS NOTE ---
Daily Progress Note Providers to CC ~ Gray-Non Protocol Gray Indications Met/Not Met: F/C Indications Not Met Antibiotic Timeout Antibiotic Ordered?: No Subjective No acute events overnight. Patient examined at bedside. Not in acute distress. Patient agitated but denies chest pain, sob, palpitations, abdominal pain, n/v/d. Vss, labs notable for slightly downtrending creatinine. Objective Vital Signs Date Time Temp Pulse Resp B/P (MAP) Pulse Ox O2 Delivery O2 Flow Rate FiO2 07/27/24 08:19 15 07/27/24 08:08 70 07/27/24 06:00 98.0 127/68 (87) 94 Room Air 07/26/24 08:19 0 Result Diagram: 07/27/2452807/27/24528 Physical Exam General: Generalized weakness, A&Ox1, agitated HEENT: Normocephalic, PERRLA; edematous upper and lower lips Neck: Supple, trachea midline, no JVD Chest: Clear to auscultation bilaterally Cardiovascular: RRR, S1&S2 GI: Soft and nontender Extremities: No cyanosis/clubbing/or edema CORK INSULATOR HELPER: No focal deficits Musculoskeletal: No paraspinal muscle tenderness, no muscle spasm Skin: Warm and intact Problem\Assessment\Plan A 73 years old male who was sent out from [place] acute postop care for lips swelling and wants to put the soft casting over the left ankle with past medical history of UTI, CAD with s/p CABG, uncontrolled T2 DM, hypertension, CKD stage III, depression, s/p left ankle splint placement for mildly displaced fracture on the left ankle (medial malleolus). # Angioedema -likely from home lisinopril -diphenhydramine, antihistamine, steroid, IVF, prn epinephrine; monitor for anaphylaxis # Normocytic anemia -stable h/h, follow lab # Prerenal SIDRA on CKD stage III 2/2 vasomotor nephropathy -IVF, follow I&Os, labs # IDDM # Hyperglycemia -A1c 9.3%, Lantus and supplemental # Hx s/p left ankle splint placement for mildly displaced fracture on the left ankle (medial malleolus) # Peripheral neuropathy -continue supportive care Code Status: Full code DVT/VTE prophylaxis: heparin Date of Service: July 27, 2024 Billing Provider: MALCOLM RUVALCABA Common Visit Codes: [id number] INP/OBS CARE(HIGH) MALCOLM RUVALCABA BUSINESS PROCESS SPECIALIST July 27, 2024 12:14
[2024-07-27] MEDS: loratadine 10mg tablet PO ONE (13:24)
[2024-07-27] MEDS: methylPREDNISolone sod succ 125mg/2ml vial IV ONE (13:24)
[2024-07-27] MEDS: ringers solution, lacted 1,000 ML IV SCH (13:32)
[2024-07-27 14:14] LABS: % IRON SATURATION 26 % (11-46); IRON 62 UG/DL (53-167); TOTAL IRON BINDING CAPACITY 239 UG/DL (259-388)
[2024-07-27 14:27] LABS: FERRITIN 118 NG/ML (26-388)
[2024-07-27] MEDS: hydrALAZINE 20mg/ml inj. IV PRN (17:39)
[2024-07-27 18:00] VITALS: BP 178/109; PULSE 83; RESP 16; TEMP 98.1; O2SAT 96
[2024-07-27] MEDS: haloperidol lactate 5mg/ml inj IM ONE (19:16)
[2024-07-27 20:00] VITALS: RESP 16; O2SAT 96
[2024-07-27 20:30] VITALS: BP 158/97; PULSE 79; RESP 18
[2024-07-27 22:00] VITALS: BP 153/82; PULSE 74; RESP 16; TEMP 97.9; O2SAT 95
[2024-07-27] MEDS: insulin glargine (Lantus) pen - multi-dose SQ SCH (22:22)
[2024-07-28 05:51] LABS: BASOPHILS # (AUTO) 0.1 X10'3 (0-0.2); EOSINOPHILS % (AUTO) 0.2 % (0-6); HEMATOCRIT 32.5 % (42.0-52.0); HEMOGLOBIN 10.8 g/dl (14.0-17.9); LYMPHOCYTES # (AUTO) 2.1 X10'3 (1.1-4.8); LYMPHOCYTES % (AUTO) 19.6 % (21-51); MEAN CORPUSCULAR HEMOGLOBIN 28.2 PG (27.0-31.0); MEAN CORPUSCULAR HGB CONC 33.2 g/dL (33.0-36.5); MEAN CORPUSCULAR VOLUME 85.1 FL (78-98); MEAN PLATELET VOLUME 7.3 FL (7.4-10.4); MONOCYTES # (AUTO) 1.1 X10'3 (0-0.9); MONOCYTES % (AUTO) 10.6 % (2-12); NEUTROPHILS # (AUTO) 7.3 X10'3 (1.8-7.7); NEUTROPHILS % (AUTO) 68.6 % (42-75); PLATELET COUNT 347 X10'3 (140-440); RED BLOOD COUNT 3.82 X10'6 (4.70-6.10); RED CELL DISTRIBUTION WIDTH 14.9 % (11.5-14.5); WHITE BLOOD COUNT 10.6 X10'3 (4.5-11.0)
[2024-07-28 06:00] VITALS: BP 174/63; PULSE 74; RESP 15; TEMP 97.9; O2SAT 98
[2024-07-28 06:05] LABS: ALANINE AMINOTRANSFERASE 18 U/L (12-78); ALBUMIN 2.8 G/DL (3.4-5.0); ALBUMIN/GLOBULIN RATIO 0.7 (1.1-1.5); ALKALINE PHOSPHATASE 104 IU/L (46-116); ANION GAP 7 (8-16); ASPARTATE AMINO TRANSFERASE 20 U/L (10-37); BILIRUBIN,TOTAL 0.4 MG/DL (0.1-1.0); BLOOD UREA NITROGEN 25 MG/DL (7-18); BUN/CREATININE RATIO 17.4 (10.0-20.0); CHLORIDE 102 MMOL/L (99-107); CREATININE 1.44 MG/DL (0.60-1.10); GLUCOSE 207 MG/DL (70-104); MAGNESIUM 1.6 MG/DL (1.5-2.4); POTASSIUM 5.5 MMOL/L (3.5-5.1); SODIUM 134 MMOL/L (135-145); TOTAL CARBON DIOXIDE 24.6 MMOL/L (24-32); TOTAL PROTEIN 6.9 G/DL (6.4-8.2); eCRCL 45 ML/MIN; eGFR 48 ML/MIN
[2024-07-28] MEDS: PATIROMER CALCIUM SORBITEX 8.4 GM POWD.PACK PO ONE (07:45)
[2024-07-28 08:00] VITALS: RESP 15; O2SAT 98
[2024-07-28] MEDS ORDERED: loratadine 10mg tablet PO SCH (08:00)
[2024-07-28] MEDS: methylPREDNISolone sod succ 125mg/2ml vial IV SCH (09:47)
[2024-07-28 10:00] VITALS: BP 157/61; PULSE 85; RESP 16; TEMP 98; O2SAT 96
[2024-07-28] MEDS ORDERED: amLODIPine 5mg tablet PO ONE (10:50)
--- NOTE | 2024-07-28 15:54 | DISCHARGE SUMMARY ---
Discharge Summary Providers to CC ~ Discharge Summary Admission Diagnosis: Angioedema likely medication-induced Hospital Course DATE OF ADMISSION: 07/26/24 DATE OF DISCHARGE: 07/28/24 Discharge Diagnosis\\Comment: Left AMA Angioedema likely medication-induced Hyperkalemia 2/2 SIDRA Prerenal SIDRA on CKD III 2/2 vasomotor nephropathy Normocytic anemia IDDM Hyperglycemia Hx s/p left ankle splint placement for mildly displaced fracture on the left ankle (medial malleolus) Peripheral neuropathy Generalized weakness Operations\\Procedures: None Consultants: None Complications: Left AMA Condition on DC: Unstable Discharge Summary: History of Present Illness From H&P: Esdras Parsons is "a 73 years old male who was sent out from [facility] postop care for lips swelling and wants to put the soft casting over the left ankle with past medical history of UTI, CAD with s/p CABG, uncontrolled T2 DM, hypertension, CKD stage III, depression, s/p left ankle splint placement for mildly displaced fracture on the left ankle. Pt is poor historian and could not recall the history well in details. Pt has no idea why he was sent here from [facility]. As per ER physician concern, pt needs to be admitted to be monitored to make sure his lisinopril out of the system. He noticed the swollen lips over few days and did not record if he started any new medications and when he started taking lisinopril and gabapentin. He denies nausea vomiting, diarrhea, cramping abdominal pain, hypotension, lightheadedness and dizziness, chest pain pressure discomfort, large tongue and swollen throat with difficulties in breathing. He stated that he took off his soft casting over his left ankle because of the bad smell came out and itchiness. He only have pain on walking over the left an kle." Hospital Course Physical assessment was notable for angioedema of lips. Patient was treated with diphenhydramine, antihistamine, steroid, intravenous fluids, prn epinephrine and was kept on close monitoring. Home lisinopril was held. Labs notable for hyperkalemia in which patient was given Veltassa for. Patient is not medically cleared for discharge to home and disposition was planned for rehab. However, patient left AMA despite explaining risks associated with leaving AMA. Physical Exam General: Generalized weakness, A&Ox2 HEENT: Normocephalic, PERRLA; edematous upper and lower lips Neck: Supple, trachea midline, no JVD Chest: Clear to auscultation bilaterally Cardiovascular: RRR, S1&S2 GI: Soft and nontender Extremities: No cyanosis/clubbing/or edema HUMAN RESOURCES TRAINEE: No focal deficits Musculoskeletal: No paraspinal muscle tenderness, no muscle spasm Skin: Warm and intact *Problems/Diagnosis: (1) Angio-edema Status: Acute (2) Hypertension Status: Chronic Total Time Spent on D/C: > 30 Minutes Date of Service: July 28, 2024 Billing Provider: MALCOLM RUVALCABA Common Visit Codes: 40800-RUT/OBS DISCH DAY >30min Problem Qualifiers (1) Angio-edema: Qualified Codes: T78.3XXA - Angioneurotic edema, initial encounter MALCOLM RUVALCABA July 28, 2024 15:53
[2024-07-29] MEDS ORDERED: amLODIPine 5mg tablet PO SCH (08:00)
== END 2024-07-28 12:50 | disposition left against medical advice (07) | DRG 915 ==
LOC: ER 01:06 → ED HOLD 05:45 → ORTHO 4S 09:39
PROVIDERS: ADMIT Internal Medicine Critical Care Medicine; ATTEND Family Medicine
DX: T78.3XXA Angioneurotic edema, initial encounter (principal); N17.0 Acute kidney failure with tubular necrosis; E88.09 Other disorders of plasma-protein metabolism, not elsewhere classified; N18.30 Chronic kidney disease, stage 3 unspecified; Z53.21 Procedure and treatment not carried out due to patient leaving prior to being seen by health care provider; I25.10 Atherosclerotic heart disease of native coronary artery without angina pectoris; E11.65 Type 2 diabetes mellitus with hyperglycemia; E11.42 Type 2 diabetes mellitus with diabetic polyneuropathy; I12.9 Hypertensive chronic kidney disease with stage 1 through stage 4 chronic kidney disease, or unspecified chronic kidney disease; E87.5 Hyperkalemia; F32.A Depression, unspecified; T50.995A Adverse effect of other drugs, medicaments and biological substances, initial encounter; E11.22 Type 2 diabetes mellitus with diabetic chronic kidney disease; Z88.8 Allergy status to other drugs, medicaments and biological substances; Z79.82 Long term (current) use of aspirin; Z79.4 Long term (current) use of insulin; Z79.899 Other long term (current) drug therapy; Z79.84 Long term (current) use of oral hypoglycemic drugs; Y92.89 Other specified places as the place of occurrence of the external cause; Z95.1 Presence of aortocoronary bypass graft; D64.9 Anemia, unspecified
CPT/HCPCS: 36415; 71045; 73610; 80048; 80053; 80061; 82728; 82948; 83036; 83540; 83550; 83735; 84132; 85025; 85651; 86140; 86160; 87081; 96361; 96372; 96374; 97110; 97162; 97530; 99285; A6590; G0378; J0360; J1630; J1644; J1815; J2919; J7030; J7120

== ENCOUNTER 2025-01-30 15:12 | Inpatient (IN) | payer MEDICARE, MEDICAID ==
[~2025-01-30] VITALS: Ht 177.8 cm; Wt 100.0 kg
[~2025-01-30 15:12] MED LIST changes: +ALBU18HF2; +TAMS-55 PO
--- NOTE | 2025-01-30 16:35 | Physician Documentation ---
History of Present Illness ~ General Chief Complaint: ALOC Stated Complaint: ALTERED Time Seen by MD: 15:46 OK to notify your PCP?: No Primary Medical Doctor: ANGELICA Oconnell Source: EMS (6) Mode of Arrival: EMS, Stretcher History of Present Illness Initial Comments Patient was brought in by EMS for altered level of consciousness. It is unclear who called paramedics and there is no one at bedside with the patient, who is unable to give his own history. The only history available is that the patient was found down, and that he was found near a bottle of spilled gabapentin. A review of his external medication history shows that he does in fact take 300 mg gabapentin tablets, but paramedics did not bring the medication bottle, it is not clear how many might be missing, and it is not clear whether or not he took them or merely dropped the bottle. Medication Reconciliation Allergies: Coded Allergies: metformin (Verified Allergy, Unknown, 01/30/25) Scheduled Aspirin (Aspirin), 1 TAB.CHEW PO DAILY, (Reported) Atorvastatin Calcium* (Lipitor*), 1 TAB PO DAILY, (Reported) Dicyclomine Hcl* (Bentyl*), 1 CAP PO TID, (Reported) Duloxetine HCl (Duloxetine HCl), 2 CAP PO HS, (Reported) Finasteride (Finasteride), 1 TAB PO DAILY, (Reported) Furosemide (Furosemide), 1 TAB PO DAILY, (Reported) Gabapentin (Neurontin), 2 CAP PO TID, (Reported) Insulin Glargine,Hum.rec.anlog* (Lantus*), 25 UNITS SUBCUT HS, (Reported) Ipratropium [place] MDI* (Atrovent MDI*), 3 PUFFS TID, (Reported) Lisinopril (Lisinopril), 1 TAB PO DAILY, (Reported) Metoprolol Tartrate* (Lopressor tablet*), 1 TAB PO BID, (Reported) Nortriptyline Hcl (PAMELOR capsule), 50 MG PO HS, (Reported) Oxycodone HCl/Acetaminophen (Percocet 10-325 mg Tablet), 2 TAB PO Q4H, (Reported ) Pantoprazole Sodium (Pantoprazole Sodium), 1 TAB PO DAILY, (Reported) Polyethylene Glycol 3350* (Miralax*), 1 PKT PO DAILY, (Reported) Sennosides (Senna), 1 TAB PO DAILY, (Reported) Tamsulosin Hcl* (Flomax*), 1 CAP PO DAILY, (Reported) Scheduled PRN Acetaminophen (Tylenol), 1 TAB PO Q4HPRN PRN for pain or fever, (Reported) Cyclobenzaprine HCl (Cyclobenzaprine HCl), 1 TAB PO BID PRN for muscle relaxation, (Reported) ONDANSETRON ODT 4mg tablet (Ondansetron Odt), 1 TAB PO Q6H PRN PRN for nausea/vomiting Miscellaneous Medications Albuterol Sulfate (Ventolin Hfa), (Reported) Nitroglycerin (Nitroglycerin), (Reported) Past Medical History Past Medical History: Coronary Artery Disease, Hypertension, Diabetes, Depression Past Surgical History: angioplasty, orthopedic surgeries Patient History: Patient reports no known family medical history. Alcohol Use: None Lives with: Family Lives In: Home Occupation: retired Unable to obtain complete PMH: altered mental status Review of Systems Unable to obtain complete ROS: altered mental status Physical Exam Physical Exam Vital Signs: Temperature: 97.7, Source: Oral, Heart Rate: 85, Respiratory Rate: 18, BP: 177/89, Pulse Oximetry: 98, Weight: 100.000 Oxygen Flow Rate: 0 Physical Exam General: Pt is drowsy but awakens to light physical stimulation and voice. He makes good eye contact, follows some simple commands, but when asked any questions repeats okay. Head: Normocephalic and atraumatic. Eyes: Conjunctiva normal. ENT: Mucous membranes dry Neck: Supple. Chest: Clear to auscultation bilaterally, without rales, rhonchi, or wheezes. There is no accessory muscle use or retractions. Cardiac: Regular rate and rhythm without murmurs, gallops or rubs. Palpation of the chest wall is normal. Abd: Soft, nondistended, nontender, with normoactive bowel sounds. No guarding or rebound. Extremities: Within normal limits without cyanosis, clubbing, or edema. Skin: [place], warm and dry with no significant rash appreciated. Neuro: Cranial nerves II-XII grossly intact. Face symmetrical. Motor strength appears to be intact The gait is not tested Progress Results/Orders Results/Orders Orders - OBINNA HINDS MD Culture Blood (01/30/25 16:27) Electrocardiogram (01/30/25:) Chest,Single View (01/30/25 16:27) Monitor (01/30/25 16:27) Saline Lock (01/30/25:) Straight Cath For Urine Sample (01/30/25:) Nothing By Mouth (01/30/25 Dinner) Close Observation Level (01/30/25 16:27) Ct Head (01/30/25 16:56) Completed Orders - OBINNA HINDS MD Cbc/Diff (01/30/25:) Ethanol (01/30/25 16:) Electrocardiogram (01/30/25:) Chest,Single View (01/30/25:) Ondansetron Inj. (Zofran 4mg/2ml Vial) (01/30/25 16:30) Ammonia (01/30/25:) Drug Screen, Urine (01/30/25:) Normal Saline 1000ml (0.9% Sodium Chlori (01/30/25:30) BMP (01/30/25 16:27) Lacticsepsis (01/30/25 16:27) Ct Head (01/30/25 16:56) Hgb A1c (01/30/25 16:44) Osmolality (01/30/25 16:44) PBNP (01/30/25 16:44) Vital Signs 01/30/25 01/30/25 01/30/25 01/30/25 15:19 16:27 17:28 20:00 Temp 97.7 97.7 Pulse 59 85 92 71 Resp 20 18 22 16 B/P (MAP) 158/91 177/89 (118) 98/76 (83) 147/69 (95) Pulse Ox 100 98 95 O2 Flow Rate 0 0 0 0 Laboratory Tests Test 01/30/25 16:44 01/30/25 18:30 White Blood Count 11.1 H Red Blood Count 4.65 L Hemoglobin 13.2 L Hematocrit 40.6 L Mean Corpuscular Volume 87.3 Mean Corpuscular Hemoglobin 28.3 Mean Corpuscular Hemoglobin Concent 32.4 L Red Cell Distribution Width 16.1 H Platelet Count 296 Mean Platelet Volume 7.7 Neutrophils (%) (Auto) 75.3 H Lymphocytes (%) (Auto) 15.0 L Monocytes (%) (Auto) 7.4 Eosinophils (%) (Auto) 1.6 Basophils (%) (Auto) 0.7 Neutrophils # (Auto) 8.4 H Lymphocytes # (Auto) 1.7 Monocytes # (Auto) 0.8 Eosinophils # (Auto) 0.2 Basophils # (Auto) 0.1 CBC Comment Sodium Level 138 Potassium Level 4.7 Chloride Level 106 Carbon Dioxide Level 21.1 L Anion Gap 11 Blood Urea Nitrogen 28 H Creatinine 1.19 H Estimated GFR/1.73 m2 60 BUN/Creatinine Ratio 23.5 H Glucose Level 153 H Hemoglobin A1c 8.2 H Osmolality 299 Lactic Acid Level 0.8 Calcium Level 8.5 Ammonia < 10 L Pro-B-Type Natriuretic Peptide 523 H Albumin 3.3 L Procalcitonin < 0.05 Chemistry Comments Ethyl Alcohol Level < 10 Urine Comment Urine Opiates Screen Negative Urine Methadone Screen Negative Urine Fentanyl Screen Negative Urine Barbiturates Screen Negative Urine Phencyclidine Screen Negative Urine Amphetamines Screen Negative Urine Benzodiazepines Screen Negative Urine Cocaine Screen Negative Urine Cannabinoids Screen Positive Drug Screen Comment Re-Evaluation Re-Evaluation #1: Re-Evaluation Time: 16:35 Progress Pt reassessed -- more alert at this time but still not answering questions. Re-Evaluation #2: Re-Evaluation Time: 17:10 Progress Pt more awake and answering some questions, able to give me his name now. Awaiting labs. 18:00 Pt signed out to Dr. Schulz who will review remaining labs and arrange for admission. Pt remains easily arousable and protecting airway, but confused. Medical Decision Making Additional information obtaine: N/A Findings na Differential Diagnosis Medication toxicity, UTI, other infection, electrolyte derangement Addendum Sign-out note: I received sign-out on this patient. Pending urinalysis and admission. The initial urinalysis did not resolve. A repeat will be obtained. Consult: I spoke to the internal medicine service, for admission in the hospital Richy Schulz MD Departure Impression: Primary Impression: Metabolic encephalopathy Referrals: NO PRIMARY CARE PROVIDER (PCP) Critical Care Note Total Time (mins): 35 Critical Care Note The very real possibility of a deterioration of this patient's condition required the highest level of my preparedness for sudden, emergent intervention. I provided critical care services, which included medication orders, frequent reevaluations of the patient's condition and response to treatment, ordering and reviewing test results, and discussing the case with various consultants. Excludes time spent performing separately billable procedures. The critical care time associated with the care of the patient was 35min Signature Scribe Signature: maria m Attestation: OBINNA Lehman MD Jan 30, 2025 16:35 RICHY SCHULZ MD Jan 30, 2025 19:51
--- NOTE | 2025-01-30 16:38 | ELECTROCARDIOGRAPH REPORT ---
[facility] Test Date: 2025-01-30 Test Time: 16:35:32 Pat Name: KYLAH LAKE Department: [facility]- Patient ID: [facility]-[id number] Room: [place] [id number] Gender: M Glass Tinter: : [id number] Requested By: OBINNA HINDS Order Number: [id number] Reading MD: Dr. OSCAR Alvarado Measurements Intervals [place] Rate: 68 P: 52 [place]: 146 QRS: -10 QRSD: 146 T: 69 QT: 377 QTc: 401 Interpretive Statements Sinus rhythm Left atrial enlargement Nonspecific intraventricular conduction delay Electronically Signed On 01-31-2025 12:58:[address] OSCAR Alvarado Please click the below link to view image of tracing.
--- NOTE | 2025-01-30 16:46 | RADIOLOGY REPORT ---
CHEST RADIOGRAPH Indication: aloc Technique: Single frontal view of the chest was obtained COMPARISON: DI CHEST,SINGLE VIEW on DOS: 07/26/24, DI CHEST,SINGLE VIEW on DOS: 06/18/24 FINDINGS: Heart size is normal. Mild vascular congestion. Median sternotomy. No pleural effusion or pneumothorax. No acute osseous abnormality. Left shoulder arthroplasty. IMPRESSION: Mild vascular congestion
[2025-01-30 16:57] LABS: MEAN PLATELET VOLUME 7.7 FL (7.4-10.4); RED CELL DISTRIBUTION WIDTH 16.1 % (11.5-14.5)
--- NOTE | 2025-01-30 17:07 | RADIOLOGY REPORT ---
EXAM: CT CT HEAD INDICATION: aloc fall TECHNIQUE: CT of the head without intravenous contrast. Radiation Dose : 1. Head: CT Dose: CTDI volume is 66 mGy. Dose-length product is 1181.77 mGy*cm The dose indicators for CT are the volume Computed Tomography (CT) Dose Index (CTDIvol) and the Dose Length Product (DLP), and are measured in units of mGy and mGy-cm, respectively. These indicators are not patient dose, but values generated from the CT scanner acquisition factors. The report includes radiation exposure data for exposures received during this examination. COMPARISON: None FINDINGS: There is no evidence of acute intracranial hemorrhage, extra-axial collection, mass effect, midline shift, herniation or hydrocephalus. The ventricles, sulci and cisterns are age appropriate. The ramires-white differentiation is intact. Patchy periventricular and subcortical white matter hypoattenuation is nonspecific but may be related to small vessel ischemic disease. Generalized brain atrophy. The visualized paranasal sinuses and mastoid air cells are clear. The surrounding soft tissues and osseous structures are unremarkable. IMPRESSION: No acute intracranial abnormality. Atrophy and chronic small-vessel ischemic changes Radiation optimization: All CT scans at this facility use at least one of these dose optimization techniques: automated exposure control mA and/or kV adjustment per patient size (includes targeted exams where dose is matched to clinical indication) or iterative reconstruction.
[2025-01-30 17:13] LABS: CREATININE 1.19 MG/DL (0.60-1.10); ETHANOL < 10 MG/DL (<10); TOTAL CARBON DIOXIDE 21.1 MMOL/L (24-32); eCRCL 55 ML/MIN; eGFR 60 ML/MIN
[2025-01-30] MEDS: normal saline 1000ML IV soln IVB ONE (17:16)
[2025-01-30 17:21] LABS: LACTIC SEPSIS 0.8 MMOL/L (0.4-2.0)
[2025-01-30] MEDS: ondansetron/PF 4mg/2ml inj IV ONE (17:21)
[2025-01-30 19:03] LABS: URINE AMPHETAMINE SCREEN NEGATIVE (Neg); URINE BARBITUATE SCREEN NEGATIVE (Neg); URINE BENZODIAZEPINES SCREEN NEGATIVE (Neg); URINE CANNABINOID SCREEN POSITIVE (Neg); URINE COCAINE SCREEN NEGATIVE (Neg); URINE METHADONE SCREEN NEGATIVE (Neg); URINE OPIATE SCREEN NEGATIVE (Neg); URINE PHENCYCLIDINE SCREEN NEGATIVE (Neg)
[2025-01-30] MEDS ORDERED: magnesium Cl slow-release 64mg tablet PO PRN (21:15)
[2025-01-30] MEDS ORDERED: mag hydrox/Alum hydrox/simeth 30ml oral suspension PO PRN (21:15)
[2025-01-30] MEDS ORDERED: magnesium sulf-water 4G/100mL 100 ML IV PRN (21:15)
[2025-01-30] MEDS ORDERED: potassium Cl 40MEQ/1/2NS 520ml 520 ML IV PRN (21:15)
[2025-01-30] MEDS ORDERED: potassium Cl 20 mEq SR tablet PO PRN ×2 (21:15)
[2025-01-30] MEDS ORDERED: magnesium hydroxide 30ml (MOM) UD suspension PO PRN (21:15)
[2025-01-30] MEDS ORDERED: magnesium sulf-water 2g/50mL 50 ML IV PRN (21:15)
[2025-01-30 22:22] LABS: PRO BRAIN NATRIURETIC PEPTIDE 523 PG/ML (0-450)
[2025-01-30] MEDS: normal saline 1000ml 1,000 ML IV SCH (22:31)
[2025-01-30 22:36] LABS: OSMOLALITY 299 MOSM/K (280-300)
--- NOTE | 2025-01-30 23:58 | HISTORY AND PHYSICAL-Residence ---
History & Physical Providers to CC Resident Creating Document: JOSE YOST, RES ~ History of Present Illness Primary Medical Doctor: ANGELICA Oconnell Reason for Admit\Complaint: ALOC History of Present Illness A 73-year-old male with a history of CKD III, uncontrolled type 2 diabetes, hypertension, CAD s/p CABG, prior UTI, and depression was brought to the ED after being found on the ground at home with unknown downtime. Per EMS, he was severely disoriented, yelling cold, and unable to answer questions appropriately. A gabapentin bottle was found next to him, raising concern for possible ingestion, though the number of tablets taken is unknown. EMS also reported that he had recently been diagnosed with a UTI. On arrival, the patient is awake but acutely confused, non-verbal, and unable to provide meaningful history. No focal neurological deficits can be reliably assessed. He shows lip swelling, but no tongue swelling or trauma and no respiratory distress. ED course: EKG shows sinus rhythm with nonspecific intraventricular conduction delay. Initial labs show WBC 11.1, Cr 1.16 (baseline CKD), ammonia <10, BNP 523, procalcitonin negative, UDS positive for marijuana, ethanol <10, glucose 153, Hgb 9.3, and CK 573, consistent with mild rhabdomyolysis. CT head today shows no acute intracranial abnormalities, only chronic small-vessel ischemic changes and age-related atrophy. There is no available family contact information in the chart and and attempt to reach the listed emergency contact was unsuccessful and the phone line states mailbox full and no message could be left Per previous records Patient lives at home with family Ambulates using a wheelchair Unknown baseline Allergies: Coded Allergies: metformin (Verified Allergy, Unknown, 01/30/25) Home Medications Home Medications Active Ondansetron Odt (Ondansetron HCl) 4 Mg Tab.rapdis 1 Tab PO Q6H PRN PRN 4 Days Reported Flomax* (Tamsulosin HCl) 0.4 Mg Cap.sr.24h 1 Cap PO DAILY 30 Days Ventolin Hfa (Albuterol Sulfate) 90 Mcg Hfa.aer.ad Bentyl* (Dicyclomine HCl) 10 Mg Capsule 1 Cap PO TID 30 Days Tylenol (Acetaminophen) 325 Mg Tablet 1 Tab PO Q4HPRN PRN 24 Days Lantus* (Insulin Glargine) 100 Unit/1 Ml Vial 25 Units SUBCUT HS 30 Days Neurontin (Gabapentin) 300 Mg Capsule 2 Cap PO TID 30 Days Furosemide 40 Mg Tablet 1 Tab PO DAILY 30 Days Duloxetine HCl 60 Mg Capsule.dr 2 Cap PO HS 30 Days Atrovent MDI* (Ipratropium [place]) 17 Mcg/Actuation Aer.w.adap 3 Puffs TID Lisinopril 5 Mg Tablet 1 Tab PO DAILY Nitroglycerin 0.4 Mg Tab.subl Cyclobenzaprine HCl 5 Mg Tablet 1 Tab PO BID PRN Senna (Sennosides) 8.6 Mg Tablet 1 Tab PO DAILY 30 Days Miralax* (Polyethylene Glycol) 1 Packet Packet 1 Pkt PO DAILY Percocet 10-325 mg Tablet (Oxycodone HCl/Acetaminophen) 1 Each Tablet 2 Tab PO Q4H 3 Days PAMELOR capsule (Nortriptyline Hcl) 10 Mg Capsule 50 Mg PO HS Lipitor* (Atorvastatin Calcium) 40 Mg Tablet 1 Tab PO DAILY 30 Days Aspirin 81 Mg Tab.chew 1 Tab.chew PO DAILY Finasteride 5 Mg Tablet 1 Tab PO DAILY Pantoprazole Sodium 40 Mg Tablet.dr 1 Tab PO DAILY Lopressor tablet* (Metoprolol Tartrate) 25 Mg Tablet 1 Tab PO BID Past Medical History Past Medical History Per previous records: CAD status post CABG Hypotension Diabetes mellitus History of C diff Past Surgical History Surgical History Comment CABG Bilateral knee replacement surgeries Bilateral hip replacement Left shoulder replacement Family History Family History: Patient reports no known family medical history. Past Social History Smoking: Quit greater than 1 year Alcohol Use: None Lives with: Family Lives In: Home Occupation: retired ROS ROS Unable to obtain Unable to obtain: altered mental status Exam Vitals: Vital Signs Date Time Temp Pulse Resp B/P (MAP) Pulse Ox O2 Delivery O2 Flow Rate FiO2 01/30/25 21:31 98.0 77 18 135/68 (90) 96 01/30/25 20:00 0 General: Disoriented and in apparent distress HEENT: Atraumatic, normocephalic, EOMI, anicteric sclera ; pale conjunctiva, reactive pupils Neck: Trachea midline. Supple, full range of motion, no JVD Cardiac: Regular rhythm, regular rate with no murmurs all over the precordium. Respiratory: Patient was not cooperative for respiratory examination Gastrointestinal: Not cooperative Musculoskeletal: Had multiple small lacerated wounds over his bilateral lower extremities Neurological: Could not be found Skin: Warm and dry Diagnostic Data Last Recorded Lab Results: 01/30/25 1644 01/30/25 1644 Advance Care Planning Advanced Care plannin - 30 Minutes Additional Plan 1. Acute Altered Mental Status (Primary) multifactorial Differentials include: UTI-associated metabolic changes Possible gabapentin ingestion Mild rhabdomyolysis Chronic microvascular brain disease No stroke or bleed on CT Plan: Continue telemetry Neuro checks for H Monitor for clinical improvement over next 1224 hours Mg, Phos levels ordered Maintain adequate hydration, NS at 100 cc/hour, titrate based on volume status of the patient Hold gabapentin until mental status improves Patient was agitated, initiated 1 dose of Seroquel 100 mg p.o. HS, IV Ativan 2 mg once Consider EEG if persistent confusion without improvement No lumbar puncture indicated at this time 2. Acute Lip Angioedema likely medication-induced (gabapentin vs idiopathic) Patient has new lip swelling on exam today. No tongue swelling, stridor, respiratory distress, or airway compromise. 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 Gabapentin ingestion with history of CKD could due to reduced clearance Plan: Stop gabapentin permanently Airway monitoring q2h IV methylprednisolone, IV diphenhydramine, IV famotidine Epinephrine IM PRN for progression Continue avoidance of CHA inhibitors for life 2. Suspected Complicated UTI (recent diagnosis) AMS/ leukocytosis / recent infection No signs of sepsis, protocol negative Plan: Initiated Zosyn IV q.8h, deescalate antibiotics based on cultures UA and urine cultures ordered Monitor WBC, temperatures, vitals q4h If not improving consider renal/bladder ultrasound Based on urinalysis, consider ordering abdomen/pelvis CT for any renal pathology or pyelonephritis 3. Mild Rhabdomyolysis (CK 573) Likely due to being on the floor / dehydration. Plan: Repeat CK tomorrow in a.m. for down trending IV fluids gently: 100 mL/hr (avoid CHF exacerbation given BNP 523) Avoid nephrotoxic medications Strict I/O monitoring Monitor urine output closely 4. Fall With Unknown Downtime CT head negative for acute injury. Plan: CT C-spine ordered PT once oriented Fall precautions Continue telemetry 5. CKD Stage III (Cr 1.16 today) Stable at baseline Plan: Urine Lytes ordered Adjust all medication doses to eGFR Avoid CHA inhibitors and ARBs (past angioedema) Avoid NSAIDs Daily BMP 6. Normocytic Anemia , RDW 16.1 Likely chronic disease / CKD Plan: Ordered iron studies, B12, folate, retic count No transfusion unless Hgb <7 or symptomatic 7. Type 2 Diabetes Mellitus, A1c 8.2 Glucose 153 on arrival Plan: Basal insulin Lantus 20 units + medium-scale correctional insulin Continue monitoring glucose levels 8. CAD s/p CABG / Hypertension Blood pressures: 147/69 Restart metoprolol after med rec Continue aspirin 81 mg after med rec Do NOT restart lisinopril (CHA angioedema history in July) Monitor BP closely 9. Possible Gabapentin Ingestion Mental status could be exacerbated Plan: Hold gabapentin Toxicology consulted, recommended supportive care 10: BPH: Continue tamsulosin after med rec 11. Substance use disorder: UA tox positive for marijuana Ethyl alcohol level less than 10 Acetaminophen levels ordered Substance abuse navigator consulted Disposition: Admit to ortho floor with telemetry Likely requires PT/OT and social work evaluation Code Status: Full code by default DVT Prophylaxis: Heparin SQ Line/tubes: P IV Nutrition: NPO until patient passes BSS PT: Ordered Prognosis: Guarded Pending med rec Jose Yost MD Internal Medicine Resident, PGY-2 Date of Service: Jan 31, 2025 Billing Provider: DAYANA LAGUNA MD Addendum agree with resident UTI supsected gabapentin overdose mild angioedema rhabdomyolysis IM 3 JOSE YOST, RES Jan 30, 2025 23:58 DAYANA LAGUNA MD Jan 31, 2025 03:58
[2025-01-31] VITALS (7 sets, daily range): BP systolic 147–168; BP diastolic 61–107; PULSE 85–120; RESP 14–18; TEMP 97.1–98.7; O2SAT 96–100
[2025-01-31] MEDS ORDERED: DEXTROSE 15 GM of carb/4 tabs (each vial/BOTTLE has 4 tablets) PO PRN ×2 (00:35)
[2025-01-31] MEDS ORDERED: dextrose 50%-water 50ml dispensing syringe IV PRN ×2 (00:35)
[2025-01-31] MEDS: PERFLUTREN PROTEIN-A MICROSPHR (Optison) 0.22 MG/ML 3ML VIAL IV ONE (00:35)
[2025-01-31] MEDS ORDERED: glucagon, human recombinant 1mg kit SUBCUT PRN (00:35)
[2025-01-31] MEDS: normal saline 1000ml 1,000 ML IV ONE ×2 (00:38→03:01)
[2025-01-31 00:39] LABS: LEUKOCYTE ESTERASE ,URINE TRACE (Neg); NITRITES, URINE NEGATIVE (Neg); OCCULT BLOOD,URINE LARGE (Neg)
[2025-01-31 00:46] LABS: OSMOLALITY UA 759.0 MOSM/K (50-1400); UA COLLECTION TYPE NON-SPECIFIED
[2025-01-31 00:48] LABS: SQUAMOUS EPITHELIAL CELL,UR NONE SEEN /LPF (FEW)
[2025-01-31 00:58] LABS: CREATININE,URINE RANDOM 112.0 MG/DL
[2025-01-31] MEDS: methylPREDNISolone sod succ/PF 40mg inj. IV ONE (02:10)
[2025-01-31] MEDS ORDERED: haloperidol decanoate***LONG-ACTING*** 100mg/ml **IM only** inj. IM ONE (05:25)
[2025-01-31] MEDS: haloperidol lactate 5mg/ml inj IM ONE (05:37)
[2025-01-31] MEDS: famotidine/PF IV inj 20 MG in normal saline 100ml IV soln 100 ML IV ONE (07:15)
[2025-01-31] MEDS: docusate sod 100mg capsule PO SCH (07:16)
[2025-01-31] MEDS: INSULIN LISPRO 100 UNIT/ML INSULN.PEN MULTI-DOSE SQ SCH (07:33)
[2025-01-31] MEDS: heparin, porcine 5000 units/ml vial SQ SCH (07:34)
[2025-01-31 07:36] LABS: ABSOLUTE RETICS # 21800 /CUMM (23000-93000); MEAN PLATELET VOLUME 8.0 FL (7.4-10.4); RED CELL DISTRIBUTION WIDTH 16.2 % (11.5-14.5)
[2025-01-31] MEDS: piperacillin/tazo 3.375gm/50ml 50 ML IV SCH (07:39)
[2025-01-31] MEDS: K and/or MAG REPLACEMENT MC SCH (07:41)
[2025-01-31 08:00] LABS: INR 1.0 INR
[2025-01-31] MEDS ORDERED: famotidine/PF IV inj 20 MG in normal saline 100ml IV soln 100 ML IV SCH (08:00)
[2025-01-31] MEDS ORDERED: CefTRIAXone 2gm/D5W 50ml BAG 50 ML IV SCH (08:00)
[2025-01-31 09:23] LABS: % IRON SATURATION 15 % (11-46)
[2025-01-31 09:46] LABS: CREATININE 1.31 MG/DL (0.60-1.10); PHOSPHORUS 3.8 MG/DL (2.3-4.5); TOTAL CARBON DIOXIDE 18.4 MMOL/L (24-32); eCRCL 50 ML/MIN; eGFR 53 ML/MIN
[2025-01-31] MEDS: diazepam inj 5 MG/ML inj. IV ONE (12:34)
--- NOTE | 2025-01-31 15:26 | RADIOLOGY REPORT ---
Technique: Real-time ultrasound images through the bladder. Indication: Urinary retention as per nursing staff Comparison: None Findings: Bladder volume 782 cc. Ureteral jets nonvisualized. No definitive bladder wall thickening seen, albeit limited examination secondary to motion. Impression: Marked bladder distention with volume of 782 cc. Bilateral ureteral jets nonvisualized.
--- NOTE | 2025-01-31 17:37 | CARDIOLOGY REPORT ---
APPROVED REPORT EXAM: Limited 2D, Doppler, and color-flow Echocardiogram. Patient Location: 4009 A Blood Pressure: 147/107 mmHg Heart Rate: 88 bpm Rhythm: SINUS (heavy artifact due to patient movement) Indications CONGESTIVE HEART FAILURE ELEVATED PROBNP (523) HYPERTENSION CAD, S/P CABG (UNKNOWN NUMBER OF GRAFTS AND YEAR DUE TO ALOC) Kitchen Chef: unknown Previous echo: 12/17/17 [facility] (EF 60%, trace AI, trace MR, trace TR) 2D Dimensions IVSd 1.4 (0.7-1.1cm) LVDd 3.9 cm PWd 1.1 (0.7-1.1cm) IVSs 1.4 (0.8-1.2cm) LVDs 2.8 (2.5-4.0cm) PWs 1.2 (0.8-1.2cm) LVEF(%) 55.0 (>50%) FS (%) 28.1 % SV 35.5 ml CO 2.9 L/min Aortic Valve AoV Peak Rafael. 187.0 cm/s AoV VTI 29.6 cm AO Peak GR. 14.0 mmHg AO Mean GR. 9 mmHg LVOT VTI 21.86 cm LVOT Peak Rafael. 105.5 cm/s AV DI 0.74 % Mitral Valve MV E Velocity 90.9 cm/s MV Peak Gr. 4 mmHg MV DECEL TIME 328 ms MV A Velocity 147.1 cm/s MV PHT 72 ms E/A Ratio 0.6 MVA (PHT) 3.06 cm2 MV VMax 103.8 cm/s LEFT VENTRICLE Normal LV size and function. Mild septal hypertrophy. LVEF is 55%. RIGHT VENTRICLE RV appears at least mildly dialted with normal systolic function. ATRIA LA appears at least mildly dilated. AORTIC VALVE Trileaflet AV appears moderately sclerotic without significant stenosis or insufficiency. MITRAL VALVE Mild MV annular calcification without stenosis. Trace regurgitation. TRICUSPID VALVE TV appears structurally normal with trace regurgitation. PULMONIC VALVE Normal PV without gross stenosis, physiologic insufficiency. PERICARDIUM Normal pericardium. No effusion. Other Information Study Quality: Technically limited due to patient ALOC, in restraints, moving constantly during the exam. Conclusion Normal LV size and function. Mild septal hypertrophy. LVEF is 55%. RV appears at least mildly dialted with normal systolic function. LA appears at least mildly dilated. Trileaflet AV appears moderately sclerotic without significant stenosis or insufficiency. Mild MV annular calcification without stenosis. Trace regurgitation. TV appears structurally normal with trace regurgitation. Normal pericardium. No effusion.
--- NOTE | 2025-01-31 19:32 | PROGRESS NOTE ---
Daily Progress Note Providers to CC ~ Antibiotic Timeout Antibiotic Ordered?: Yes Subjective Seen in presence of nursing staff and patient's roommate today. As per his roommate he does not walk and since last two months he is wheelchair-bound. Roommate also mentioned that he had some surgery done on his prostate in past and he leaks urine. When I saw him today he was very agitated and was in restraints . Staff also mentioned that patient is retaining urine. I contacted Dr. Lee started patient on Flomax and finasteride. Dr. Lee consulted on this patient in he does not recommend to put the Gray catheter or any suprapubic catheter at this point of time. As per Dr. Lee his bladder and urinary retention issue is chronic. Pelvic ultrasound ordered and results reviewed Objective Vital Signs Date Time Temp Pulse Resp B/P (MAP) Pulse Ox O2 Delivery O2 Flow Rate FiO2 01/31/25 18:30 119 01/31/25 12:34 16 01/31/25 10:37 98.7 98 Room Air 01/31/25 08:24 147/107 (120) 01/31/25 08:00 0.0 Result Diagram: 01/31/25 0651 01/31/25 0651 General-patient is chronically ill-appearing, in restraints yelling and shouting HEENT-atraumatic normocephalic, neck supple without elevated JVD, No lymphadenopathy bilaterally. Mild lower lip swelling noticed Eyes-trying to keep his eyes closed Chest-clear to auscultation bilaterally, breathing nonlabored no tachypnea, no wheezing, no crepitation, no crackles. Heart-S1-S2 normal, regular heart rate no murmur Abdomen bowel sounds positive on auscultation, soft nondistended nontender no guarding, no rigidity Skin no active skin rash Neurology- able to move all four extremity, barely cooperated during physical exam Extremity- no pedal edema able to move all 4 extremities Psychiatry - patient is confused and agitated Coagulation Studies Laboratory Tests Test 01/31/25 06:51 Prothrombin Time 10.3 SECONDS (9.0-12.0) INR International Normalized Ratio 1.0 INR Coagulation Comments Problem\Assessment\Plan 1. Acute Altered Mental Status (Primary) multifactorial Differentials include: UTI-associated metabolic changes Possible gabapentin ingestion Mild rhabdomyolysis No stroke or bleed on CT Plan: Continue telemetry Neuro checks for H Monitor for clinical improvement over next 1224 hours Mg, Phos levels normal Maintain adequate hydration, NS at 100 cc/hour, titrate based on volume status of the patient will Hold gabapentin until mental status improves Patient was agitated,valium ordered 2. Acute Lip Angioedema ? likely medication-induced (gabapentin vs idiopathic) No tongue swelling, stridor, respiratory distress, or airway compromise. 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 Gabapentin ingestion with history of CKD could due to reduced clearance Plan: Stopped gabapentin continue Airway monitoring q2h received IV methylprednisolone, IV diphenhydramine, IV famotidine Epinephrine IM PRN for progression Continue avoidance of CHA inhibitors for life 2. Suspected Complicated UTI (recent diagnosis) on Zosyn IV q.8h, will deescalate antibiotics based on cultures UA and urine cultures ordered Monitor WBC, temperatures, vitals q4h Pelvic ultrasound orderedMarked bladder distention with volume of 782 cc. Bilateral ureteral jets nonvisualized. 3. Mild Rhabdomyolysis (CK 573) Likely due to being on the floor / dehydration. IV fluids gently: 100 mL/hr (avoid CHF exacerbation given BNP 523) will Avoid nephrotoxic medications 4. Fall With Unknown Downtime CT head negative for acute injury. CT C-spine pending PT once oriented Fall precautions Continue telemetry 5. CKD Stage III (Cr 1.16 today) Stable at baseline Urine Lytes ordered will Adjust all medication doses to eGFR Avoid CHA inhibitors and ARBs (past angioedema) Avoid NSAIDs Daily BMP 6. Normocytic Anemia , RDW 16.1 Likely chronic disease / CKD We will follow iron studies, B12, folate, retic count No transfusion unless Hgb <7 or symptomatic 7. Type 2 Diabetes Mellitus, A1c 8.2 Basal insulin Lantus 20 units + medium-scale correctional insulin Continue monitoring glucose levels 8. CAD s/p CABG / Hypertension Blood pressures: 147/69 Restart metoprolol after med rec Continue aspirin 81 mg after med rec Do NOT restart lisinopril (CHA angioedema history in July) Monitor BP closely 9. 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 Lee started patient on Flomax and finasteride. Dr. Lee consulted on this patient in he does not recommend to put the Gray catheter or any suprapubic catheter at this point of time. As per Dr. Lee his bladder and urinary retention issue is chronic. Pelvic ultrasound ordered and results reviewed 11. Substance use disorder: UA tox positive for marijuana Ethyl alcohol level less than 10 Acetaminophen levels low Substance abuse navigator consulted Code Status: Full code by default DVT Prophylaxis: Heparin SQ Line/tubes: P IV Nutrition: passed BSS PT: Ordered Patient's current condition is guarded we will continue to follow patient in AM Date of Service: Jan 31, 2025 Billing Provider: VIVEK TRAYLOR MD Common Visit Codes: 81023-[id number] INP/OBS CARE(HIGH) VIVEK TRAYLOR MD Jan 31, 2025 19:32
[2025-01-31] MEDS: insulin glargine (Lantus) pen - multi-dose SQ SCH (20:32)
[2025-01-31] MEDS: HYDROcodone/acetaminophen 5mg/325mg tablet PO ONE (22:26)
[2025-02-01] VITALS (18 sets, daily range): BP systolic 102–177; BP diastolic 55–90; PULSE 73–98; RESP 13–18; TEMP 97.3–97.8; O2SAT 94–100
--- NOTE | 2025-02-01 01:37 | CONSULTATION ---
DATE OF CONSULTATION: 01/31/2025 DICTATING PHYSICIAN: Eliezer Lee MD HISTORY OF PRESENT ILLNESS: A 74-year-old male who was brought in by EMS for altered level of consciousness. It is unclear who called the paramedics. I was asked to consult when he was found to have a high postvoid residual urine and nursing staff unable to place a Gray catheter. PAST SURGICAL HISTORY: Angioplasty and orthopedic surgeries. PAST MEDICAL HISTORY: Coronary artery disease, hypertension, diabetes, depression. ALLERGIES: PATIENT IS ALLERGIC TO METFORMIN. MEDICATIONS: Numerous, see list. PHYSICAL EXAMINATION: The patient is combative and in 2-point restraints. Abdomen shows a nonpalpable bladder. LABORATORY DATA: Creatinine is 1.19 on admission with a GFR of 60. IMAGING: Previous imaging includes a pelvic ultrasound, which shows a bladder volume of 782 mL. PROCEDURE: Standard prep and drape of the genitals was performed. After multiple nursing staff attempts to place a catheter, I suspected there might be a urethral false passage. Bedside flexible cystoscopy was performed and there was no urethral false passage, but there is a dense bladder neck contraction to the point where I could not see any lumen at all. Attempt to place a wire through any false lumen or potential lumen was unsuccessful. ASSESSMENT: * Difficult patient. * Elevated postvoid residual and inability to place bedside Gray catheter. This is secondary to a bladder neck contraction from a prior TURP. I believe, this patient likely has chronic urinary retention with elevated PVR and this does not currently contribute to his altered mental status. I also think he would do poorly with a Gray catheter in place with his combative status and likely pull the catheter out or attempt to do so. PLAN: Recommendation is to observe and allow self-voiding only. As long as creatinine is stable, I do not see an indication for further intervention. If Gray catheter is required, it would have to be put in under general anesthesia or secondarily a suprapubic tube, neither of which would be very good alternatives in this combative patient. Eliezer Lee MD TID: [id number] RECEIPT: [id number] JOAQUIN/PHUONG
[2025-02-01 05:47] LABS: MEAN PLATELET VOLUME 7.7 FL (7.4-10.4); RED CELL DISTRIBUTION WIDTH 16.7 % (11.5-14.5)
[2025-02-01 06:11] LABS: CREATININE 3.39 MG/DL (0.60-1.10); TOTAL CARBON DIOXIDE 20.6 MMOL/L (24-32); eCRCL 19 ML/MIN; eGFR 18 ML/MIN
--- NOTE | 2025-02-01 09:22 | RADIOLOGY REPORT ---
CLINICAL HISTORY: Severe neck pain TECHNIQUE: CT exam of the cervical spine was performed without intravenous contrast. This exam was performed according to our departmental dose optimization program. Up-to-date CT equipment and radiation dose reduction techniques are utilized as appropriate. CTDI 26 DLP 669 COMPARISON: None FINDINGS: Evaluation is limited due to image degradation secondary to patient motion. There is straightening of the normal cervical lordosis with 2 mm anterior C3-C4 and 1 mm posterior C4-C5 subluxation. Is 1 mm anterior C7-T1 subluxation. There is fusion of the bilateral C2-C3 and left C7-T1 facets. The prevertebral space is within normal limits. No acute fracture or dislocation is seen. There are multilevel degenerative changes posterior disc osteophyte complexes and facet / uncovertebral hypertrophy. Facet and uncovertebral hypertrophy result in multilevel neural foraminal narrowing, which appears severe at C5-C6 bilaterally. IMPRESSION: acute noncontrast CT abnormalityLimited exam with no of the cervical spine.
--- NOTE | 2025-02-01 10:52 | RADIOLOGY REPORT ---
INDICATION: Acute on chronic kidney disease, urinary retention TECHNIQUE: Multiple real-time sonographic images of the kidneys and bladder were obtained. COMPARISON: None FINDINGS: RIGHT kidney measures 12.1 cm in length. No hydronephrosis. LEFT kidney measures 12.2 cm in length. Left renal cyst measures 3.6 cm. No hydronephrosis. No large intraluminal masses are seen in the bladder. Bilateral ureteral jets are present. IMPRESSION: 1. Unremarkable examination.
[2025-02-01] MEDS ORDERED: dextrose 50%-water 50ml dispensing syringe IV PRN ×2 (12:00)
[2025-02-01] MEDS ORDERED: glucagon, human recombinant 1mg kit SUBCUT PRN (12:00)
[2025-02-01] MEDS ORDERED: DEXTROSE 15 GM of carb/4 tabs (each vial/BOTTLE has 4 tablets) PO PRN ×2 (12:00)
[2025-02-01] MEDS: INSULIN LISPRO 100 UNIT/ML INSULN.PEN MULTI-DOSE SQ SCH (13:59)
--- NOTE | 2025-02-01 14:30 | RADIOLOGY REPORT ---
EXAM: CT CT ABDOMEN PELVIS HISTORY: ACUTE RENAL FAILURE ON CKD Comparison Study: CT CT ABDOMEN PELVIS on DOS: 06/18/24 Exam Date: 02/01/2025 01:25 PM Radiation Dose Information: CT Dose: CTDI volume is 36 mGy. Dose-length product is 2113 mGy*cm Technique: Multidetector CT of the abdomen and pelvis was performed. Imaging was performed without IV contrast. Axial, coronal and sagittal multiplanar reformats were obtained from the axial data set by the technologist. Findings: Lack of intravenous contrast compromises evaluation of perfusion and for isodense lesions. Lower chest: Bibasilar atelectasis/scarring. Liver: Unremarkable Biliary system: Unremarkable. Spleen: Unremarkable Pancreas: Diffusely atrophic. Adrenals: Punctate focus of calcification in the left adrenal gland, nonspecific. Kidneys and ureters: No hydronephrosis. Small left renal cysts. Nonspecific bilateral perinephric stranding. Bowel: No obstruction. Normal appendix. Scattered colonic diverticula. Small superior ventral hernia containing loop of transverse colon. Bladder: Diffuse bladder wall thickening with mild surrounding inflammatory changes. Reproductive organs: No abnormal mass. Lymph nodes: Unremarkable. Peritoneum: Unremarkable Vessels: Patency not evaluated on this noncontrast study. Bones and soft tissue: No aggressive osseous lesion. Bilateral hip arthroplasty. IMPRESSION: Diffuse bladder wall thickening with mild surrounding inflammatory changes. Correlate for cystitis. No hydronephrosis. Small superior ventral hernia containing loop of transverse colon. No obstruction.
--- NOTE | 2025-02-01 16:09 | CONSULTATION REPORT ---
Consult Providers to CC ~ History of Present Illness Reason for Admit\Complaint: Mental Status Changes History of Present Illness This is a 73-year-old man with a history of stage 3 chronic kidney disease (baseline creatinine 1.16), uncontrolled type 2 diabetes, hypertension, coronary artery disease status post-CABG, prior UTI, and depression. He was brought to the ED after being found down at home for an unknown duration. On EMS arrival, he was severely disoriented, speaking nonsensically, and unable to answer questions appropriately. A gabapentin bottle was found nearby, but the pill count and prescription date were not checked, raising concern for possible ingestion. He was recently diagnosed with a UTI, but current therapy is unclear. On arrival to the ED, he was acutely confused, nonverbal, and unable to provide meaningful history. There were no focal neurological deficits. Head CT was unremarkable. He had lip swelling without tongue swelling, trauma, or respiratory distress. EKG showed sinus rhythm without conduction delays. Initial labs: WBC 11.1, creatinine 1.16, ammonia <10, BNP 523, procalcitonin negative, urine drug screen positive for marijuana, ethanol <10, glucose 153, hemoglobin 9.3, CK 573. Allergies: Coded Allergies: metformin (Verified Allergy, Unknown, 01/30/25) Home Medications Home Medications Active Ondansetron Odt (Ondansetron HCl) 4 Mg Tab.rapdis 1 Tab PO Q6H PRN PRN 4 Days Reported Flomax* (Tamsulosin HCl) 0.4 Mg Cap.sr.24h 1 Cap PO DAILY 30 Days Ventolin Hfa (Albuterol Sulfate) 90 Mcg Hfa.aer.ad Bentyl* (Dicyclomine HCl) 10 Mg Capsule 1 Cap PO TID 30 Days Tylenol (Acetaminophen) 325 Mg Tablet 1 Tab PO Q4HPRN PRN 24 Days Lantus* (Insulin Glargine) 100 Unit/1 Ml Vial 25 Units SUBCUT HS 30 Days Neurontin (Gabapentin) 300 Mg Capsule 2 Cap PO TID 30 Days Furosemide 40 Mg Tablet 1 Tab PO DAILY 30 Days Duloxetine HCl 60 Mg Capsule.dr 2 Cap PO HS 30 Days Atrovent MDI* (Ipratropium [place]) 17 Mcg/Actuation Aer.w.adap 3 Puffs TID Lisinopril 5 Mg Tablet 1 Tab PO DAILY Nitroglycerin 0.4 Mg Tab.subl Cyclobenzaprine HCl 5 Mg Tablet 1 Tab PO BID PRN Senna (Sennosides) 8.6 Mg Tablet 1 Tab PO DAILY 30 Days Miralax* (Polyethylene Glycol) 1 Packet Packet 1 Pkt PO DAILY Percocet 10-325 mg Tablet (Oxycodone HCl/Acetaminophen) 1 Each Tablet 2 Tab PO Q4H 3 Days PAMELOR capsule (Nortriptyline Hcl) 10 Mg Capsule 50 Mg PO HS Lipitor* (Atorvastatin Calcium) 40 Mg Tablet 1 Tab PO DAILY 30 Days Aspirin 81 Mg Tab.chew 1 Tab.chew PO DAILY Finasteride 5 Mg Tablet 1 Tab PO DAILY Pantoprazole Sodium 40 Mg Tablet.dr 1 Tab PO DAILY Lopressor tablet* (Metoprolol Tartrate) 25 Mg Tablet 1 Tab PO BID Past Medical History Past Medical History Reviewed Past Surgical History Surgical History Comment Reviewed Family History Family History: Patient reports no known family medical history. ROS ROS Unable to assess Exam Vitals: Vital Signs Date Time Temp Pulse Resp B/P (MAP) Pulse Ox O2 Delivery O2 Flow Rate FiO2 02/01/25 09:57 97.3 73 18 147/71 (96) 97 Room Air 01/31/25 20:00 0.0 Alert and confused RRR w/o murmur, no JVD CTAB, no wheezes +BS,NT No edema Diagnostic Data Last Recorded Lab Results: 02/01/2515 02/01/25 0515 Diagnostic Data: Laboratory Tests Test 01/31/25 06:51 Prothrombin Time 10.3 SECONDS (9.0-12.0) INR International Normalized Ratio 1.0 INR Coagulation Comments Additional Plan The patient has acute kidney injury (SIDRA) on chronic kidney disease (CKD), with a rise in creatinine from 1.16 to 3.39 mg/dL and BUN 43 mg/dL, indicating a significant decline in renal function. The most likely etiologies are prerenal azotemia from hypoperfusion (hypotension, dehydration), nephrotoxic drug exposure (gabapentin, lorazepam), and infection-related SIDRA (recent UTI). Rhabdomyolysis is less likely given CK 573 and no myoglobinuria. The patient remains confused and disoriented, likely from SIDRA, infection, and drug effects. Acute Kidney Injury (SIDRA) on Chronic Kidney Disease (CKD) Stage 3 Likely due to a combination of volume depletion (found down, unclear oral intake), recent infection (UTI), and exposure to nephrotoxic medications (gabapentin, lorazepam). Rhabdomyolysis is unlikely given only mildly elevated CK and no myoglobinuria. Obstructive uropathy and glomerulonephritis are not supported by clinical or laboratory findings. Stop nephrotoxic agents (gabapentin, lorazepam) Start gentle IV fluids, monitor for fluid overload, Lactated Ringers 50 mL/hr Daily monitoring of renal function and electrolytes Adjust all medications for current renal function Monitor intake and output closely Acute Confusion/Delirium Likely multifactorial, related to metabolic derangements from SIDRA/uremia, infection, and possible drug effects. Structural SLATE ROOFER HELPER events are unlikely given a normal head CT and absence of focal deficits. Treat underlying causes (optimize renal function, treat infection) Avoid further sedating medications Provide supportive care: reorientation, safety measures, minimize nighttime disturbances Monitor for improvement as metabolic and infectious issues resolve Urinary Tract Infection (UTI) Recent diagnosis, likely contributing to both SIDRA and delirium. Started empiric antibiotics, adjust based on culture and renal function Monitor for clinical response and signs of sepsis Ensure adequate hydration Uncontrolled Type 2 Diabetes Mellitus Chronic condition, currently with moderate hyperglycemia. Monitor blood glucose closely Adjust insulin or oral agents as needed, considering renal function Avoid hypoglycemia, especially in the setting of SIDRA Hypertension Chronic, likely contributing to CKD progression. Monitor blood pressure regularly, goal less than 140/90 in the acute care setting Adjust antihypertensive regimen as needed, considering renal function and volume status Coronary Artery Disease, Status Post CABG History of atherosclerotic disease. Continue cardiac medications as appropriate, adjust for renal function Monitor for cardiac complications as indicated Depression Chronic psychiatric condition. Continue home medications if safe with current renal function Monitor for mood or behavioral changes as delirium resolves Supportive Measures Fall precautions and safety monitoring DVT prophylaxis as appropriate Nutritional support if oral intake is poor ISABELLA QUEEN III DO Feb 01, 2025 16:09
--- NOTE | 2025-02-01 17:09 | POSTOPERATIVE RECORDS ---
Postoperative Records Providers to CC ~ Date of Procedure: Feb 01, 2025 Problems: (1) Urinary retention Post-Operative Diagnosis SAME as PRE-Op Procedure Performed cystoscopy, dilation of severe BNC, and westfall catheterization Surgeon: Rosa Mill Set Up none Anesthesiologist: Rusty Bowling Type of Anesthesia: General Findings: dictated Complications none Prosthetics\Implants used: none Estimated Blood Loss: none Specimen Removed: none Description of Procedure: dictated BECKY HADLEY MD Feb 01, 2025 17:09
[2025-02-01] MEDS ORDERED: propofol inj 20 ML IV ONE ×2 (17:11)
--- NOTE | 2025-02-01 17:18 | OPERATIVE REPORT ---
DATE OF SURGERY: 02/01/2025 DICTATING PHYSICIAN: Eliezer Lee MD PREOPERATIVE DIAGNOSES: * Urinary retention. * Rising creatinine. POSTOPERATIVE DIAGNOSES: * Urinary retention, secondary to severe bladder neck contraction. * Rising creatinine, secondary to severe bladder neck contraction. OPERATIONS PERFORMED: * Cystoscopy. * Dilation of bladder neck contraction. * Gray catheterization, complex. SURGEON: Eliezer Lee MD ANESTHESIOLOGIST: ANESTHESIA: General. INDICATIONS: A 74-year-old male who was admitted for confusion. He was found to have a high postvoid residual urine. His creatinine upon presentation was about 1.2. I attempted at the bedside to place a Gray, but he had a dense bladder neck contraction and it was treated conservatively. Unfortunately, his creatinine is up to 3.4 today. He was taken to the operating room for Gray placement under anesthesia. DESCRIPTION OF PROCEDURE: The patient was not consentable due to confusion and double doctor consent was performed. He was placed in the supine position and IV sedation was performed due to high surgical risk. The 22-Ecuadorean rigid cystoscope was advanced up to the bladder neck where a dense bladder neck contraction was encountered. I could not see any lumen. Blindly, however, I was able to advance a wire into the cephalad position at the 12 o'clock position, which advanced easily and coiled presumably in the bladder. This was performed with the aid of a 5-Ecuadorean open-ended catheter. The wire fed in easily and the bladder neck contraction was dilated from 12 Ecuadorean up to 22 Ecuadorean. This was followed by a 16-Ecuadorean disability counselor-tip catheter drainage draining about 1000 mL of clear yellow urine. The patient tolerated the procedure well. 30 mL were placed in the balloon to prevent him from removing it traumatically. He was then awakened from IV sedation, having tolerated the procedure well. COMPLICATIONS: None. Eliezer Lee MD TID: [id number] RECEIPT: [id number] /[id number]
[2025-02-01] MEDS ORDERED: ondansetron/PF 4mg/2ml inj IV PRN (17:25)
[2025-02-01] MEDS: ringers solution, lacted 1,000 ML IV SCH (17:25)
--- NOTE | 2025-02-01 18:31 | PROGRESS NOTE ---
Daily Progress Note Providers to CC ~ Antibiotic Timeout Antibiotic Ordered?: Yes Subjective Patient was seen in his room he was confused lethargic sitter in place not in restraints when I evaluated him. Barely cooperated during physical exam. Objective Vital Signs Date Time Temp Pulse Resp B/P (MAP) Pulse Ox O2 Delivery O2 Flow Rate FiO2 02/01/25 18:03 90 13 139/73 (95) 95 Nasal Cannula 0.0 02/01/25 17:13 97.3 Result Diagram: 02/01/2515 02/01/25 0515 General-patient is chronically ill-appearing, confused partially cooperated during exam HEENT-atraumatic normocephalic, neck supple without elevated JVD, No lymphadenopathy bilaterally. mild lip swelling noticed over upper and lower lips Eyes-trying to keep his eyes closed Chest-clear to auscultation bilaterally, breathing nonlabored no tachypnea, no wheezing, no crepitation, no crackles. Heart-S1-S2 normal, regular heart rate no murmur Abdomen bowel sounds positive on auscultation, soft nondistended nontender no guarding, no rigidity Skin no active skin rash Neurology- able to move all four extremity, barely cooperated during physical exam Extremity- no pedal edema able to move all 4 extremities Psychiatry - patient is confused and agitated Coagulation Studies Laboratory Tests Test 01/31/25 06:51 Prothrombin Time 10.3 SECONDS (9.0-12.0) INR International Normalized Ratio 1.0 INR Coagulation Comments Problem\Assessment\Plan 1. Acute Altered Mental Status (Primary) multifactorial Differentials include: UTI-associated metabolic changes Possible gabapentin ingestion Mild rhabdomyolysis No stroke or bleed on CT Plan: Continue telemetry Neuro checks for H Monitor for clinical improvement over next 1224 hours Mg, Phos levels normal Maintain adequate hydration, LR at 100 cc/hour, will titrate based on volume status of the patient will Hold gabapentin until mental status improves 2. Acute Lip Angioedema ? likely medication-induced (gabapentin vs idiopathic) No tongue swelling, stridor, respiratory distress, or airway compromise. 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 Gabapentin ingestion with history of CKD could due to reduced clearance Plan: Stopped gabapentin continue Airway monitoring q2h received IV methylprednisolone, IV diphenhydramine, IV famotidine Epinephrine IM PRN for progression Continue avoidance of CHA inhibitors for life 2. Suspected Complicated UTI (recent diagnosis) Stopped Zosyn and started on ceftriaxone UA and urine cultures ordered Monitor WBC, temperatures, vitals q4h Pelvic ultrasound ordered Marked bladder distention with volume of 782 cc. Bilateral ureteral jets nonvisualized. 3. Mild Rhabdomyolysis (CK 573) Likely due to being on the floor / dehydration. IV fluids gently: 100 mL/hr (avoid CHF exacerbation given BNP 523) will Avoid nephrotoxic medications 4. Fall With Unknown Downtime CT head negative for acute injury. CT C-spine pending PT once oriented Fall precautions Continue telemetry 5. Acute renal failure on CKD Stage III On IV fluid Ringer lactate 100 mL per will Adjust all medication doses to eGFR Avoid CHA inhibitors and ARBs (past angioedema) Avoid NSAIDs We will monitor Daily BMP Dr. Cox evaluated the patient and his consult note reviewed we will follow the recommendation 6. Normocytic Anemia , RDW 16.1 Likely chronic disease / CKD We will follow iron studies, B12, folate, retic count No transfusion unless Hgb <7 or symptomatic 7. Type 2 Diabetes Mellitus, A1c 8.2 On hypo and hyperglycemic protocol Continue monitoring glucose levels 8. CAD s/p CABG / Hypertension Restarted metoprolol after med rec Continue aspirin 81 mg after med rec Do NOT restart lisinopril (CHA angioedema history in July) Monitor BP closely 9. 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 Lee started patient on Flomax and finasteride. Dr. Lee consulted on this patient in he does not recommend to put the Gray catheter or any suprapubic catheter at this point of time. As per Dr. Lee his bladder and urinary retention issue is chronic. Pelvic ultrasound ordered and results reviewed . 02/01-patient had cystoscopy, dilatation of bladder neck contraction, Gray catheterization complex done by Dr. Lee for urinary retention and rising creatinine 11. Substance use disorder: UA tox positive for marijuana Ethyl alcohol level less than 10 Acetaminophen levels low Substance abuse navigator consulted Code Status: Full code by default DVT Prophylaxis: Heparin SQ Line/tubes: P IV Nutrition: passed BSS PT: Ordered Patient's current condition is guarded we will continue to follow patient in AM . Further management as recommended by Nephrology and Urology specialist. Date of Service: Feb 01, 2025 Billing Provider: VIVEK TRAYLOR MD Common Visit Codes: [id number] INP/OBS CARE(HIGH) VIVEK TRAYLOR MD Feb 01, 2025 18:31
[2025-02-01 19:57] LABS: CREATININE,URINE RANDOM 44.0 MG/DL; UA UREA RANDOM 286.0 MG/DL
[2025-02-01 19:59] LABS: MEAN PLATELET VOLUME 7.6 FL (7.4-10.4); RED CELL DISTRIBUTION WIDTH 17.0 % (11.5-14.5)
[2025-02-01 20:01] LABS: LEUKOCYTE ESTERASE ,URINE SMALL (Neg); NITRITES, URINE NEGATIVE (Neg); OCCULT BLOOD,URINE LARGE (Neg)
[2025-02-01 20:07] LABS: UA COLLECTION TYPE NON-SPECIFIED
[2025-02-01 20:08] LABS: MUCUS STRANDS NONE SEEN /LPF (Neg); SQUAMOUS EPITHELIAL CELL,UR FEW /LPF (FEW)
[2025-02-01 20:13] LABS: CREATININE 4.05 MG/DL (0.60-1.10); TOTAL CARBON DIOXIDE 20.6 MMOL/L (24-32); eCRCL 16 ML/MIN; eGFR 15 ML/MIN
[2025-02-01 20:34] LABS: UA EOSINOPHILS RARE EOS /HPF
[2025-02-01 20:51] LABS: ABG BASE EXCESS -6.0 mmol/L (-2.0-3.0); ABG HCO3 18.4 mmol/L (21.0-28.0); ABG OXYGEN SATURATION 94.6 % (94.0-98.0); ABG PCO2 (T) 31.4 mmHg (35.0-48.0); ABG PH (T) 7.381 (7.350-7.450); ABG PO2 (T) 73.2 mmHg (83.0-108.0); ALLEN'S TEST Modified; FCOHb 1.1 % (0.5-1.5); FHHb 5.3 % (0.0-5.0); FIO2 21.0 mmHg/%; FMetHb 0.3 % (0.0-1.5); FO2Hb 93.3 % (94.0-98.0); MODE ROOM AIR; PATIENT TEMPERATURE 36.3; TOTAL HEMOGLOBIN 11.8 G/dl (13.5-17.5)
[2025-02-02 06:00] VITALS: BP 161/59; PULSE 64; RESP 15; TEMP 97.2; O2SAT 100
[2025-02-02 06:48] LABS: MEAN PLATELET VOLUME 7.8 FL (7.4-10.4); RED CELL DISTRIBUTION WIDTH 16.8 % (11.5-14.5)
[2025-02-02 07:18] LABS: CREATININE 3.02 MG/DL (0.60-1.10); TOTAL CARBON DIOXIDE 19.5 MMOL/L (24-32); eCRCL 22 ML/MIN; eGFR 20 ML/MIN
--- NOTE | 2025-02-02 07:22 | PROGRESS NOTE ---
Progress Note Dictate Providers to CC ~ Progress Note: This is a 73-year-old man with a history of stage 3 chronic kidney disease (baseline creatinine 1.16), uncontrolled type 2 diabetes, hypertension, coronary artery disease status post-CABG, prior UTI, and depression. He was brought to the ED after being found down at home for an unknown duration. On EMS arrival, he was severely disoriented, speaking nonsensically, and unable to answer questions appropriately. A gabapentin bottle was found nearby, but the pill count and prescription date were not checked, raising concern for possible ingestion. He was recently diagnosed with a UTI, but current therapy is unclear. On arrival to the ED, he was acutely confused, nonverbal, and unable to provide meaningful history. There were no focal neurological deficits. Head CT was unremarkable. He had lip swelling without tongue swelling, trauma, or respiratory distress. EKG showed sinus rhythm without conduction delays. Initial labs: WBC 11.1, creatinine 1.16, ammonia <10, BNP 523, procalcitonin negative, urine drug screen positive for marijuana, ethanol <10, glucose 153, hemoglobin 9.3, CK 573. Antibiotic Ordered?: N/A Subjective Subjective Much more alert and less confused today, no new events since last evaluation Objective Vitals Vital Signs Date Time Temp Pulse Resp B/P (MAP) Pulse Ox O2 Delivery O2 Flow Rate FiO2 02/02/25 11:57 14 02/02/25 11:00 Nasal Cannula 2.0 02/02/25 10:00 98.3 85 141/61 (87) 98 Alert, in chair PT present RRR w/o murmur, no JVD CTAB, no wheezes +BS, NT No edema Lab Results: 02/02/25 0546 02/02/25 0546 Coagulation Studies Laboratory Tests Test 01/31/25 06:51 Prothrombin Time 10.3 SECONDS (9.0-12.0) INR International Normalized Ratio 1.0 INR Coagulation Comments Other Results I & O 02/02/25 07:00 Intake Total 400 ml Output Total 1350 ml Balance -950 ml Intake Oral 300 ml Other 100 ml Output Urine Total 1350 ml Problem\Assessment\Plan Additional Plan he patient has acute kidney injury (SIDRA) on chronic kidney disease (CKD), with a rise in creatinine from 1.16 to 3.39 mg/dL and BUN 43 mg/dL, indicating a significant decline in renal function. The most likely etiologies are prerenal azotemia from hypoperfusion (hypotension, dehydration), nephrotoxic drug exposure (gabapentin, lorazepam), and infection-related SIDRA (recent UTI). Rhabdomyolysis is less likely given CK 573 and no myoglobinuria. The patient remains confused and disoriented, likely from SIDRA, infection, and drug effects. Acute Kidney Injury (SIDRA) on Chronic Kidney Disease (CKD) Stage 3 Likely due to a combination of volume depletion (found down, unclear oral intake), recent infection (UTI), and exposure to nephrotoxic medications (gabapentin, lorazepam). Rhabdomyolysis is unlikely given only mildly elevated CK and no myoglobinuria. Obstructive uropathy and glomerulonephritis are not supported by clinical or laboratory findings. Stop nephrotoxic agents (gabapentin, lorazepam) Continue gentle IV fluids, monitor for fluid overload, Lactated Ringers 50 mL/hr Daily monitoring of renal function and electrolytes Adjust all medications for current renal function Monitor intake and output closely Acute Confusion/Delirium Likely multifactorial, related to metabolic derangements from SIDRA/uremia, infection, and possible drug effects. Structural DUST SAMPLER events are unlikely given a normal head CT and absence of focal deficits. Treat underlying causes (optimize renal function, treat infection) Avoid further sedating medications Provide supportive care: reorientation, safety measures, minimize nighttime disturbances Monitor for improvement as metabolic and infectious issues resolve Urinary Tract Infection (UTI) Recent diagnosis, likely contributing to both SIDRA and delirium. Started empiric antibiotics, adjust based on culture and renal function Monitor for clinical response and signs of sepsis Ensure adequate hydration Uncontrolled Type 2 Diabetes Mellitus Chronic condition, currently with moderate hyperglycemia. Monitor blood glucose closely Adjust insulin or oral agents as needed, considering renal function Avoid hypoglycemia, especially in the setting of SIDRA Hypertension, goal 140/90 Chronic, likely contributing to CKD progression. Monitor blood pressure regularly, goal less than 140/90 in the acute care setting Adjust antihypertensive regimen as needed, considering renal function and volume status Coronary Artery Disease, Status Post CABG History of atherosclerotic disease. Continue cardiac medications as appropriate, adjust for renal function Monitor for cardiac complications as indicated Depression Chronic psychiatric condition. Continue home medications if safe with current renal function Monitor for mood or behavioral changes as delirium resolves Supportive Measures Fall precautions and safety monitoring DVT prophylaxis as appropriate Nutritional support if oral intake is poor ISABELLA QUEEN III DO Feb 02, 2025 07:22
[2025-02-02 08:00] VITALS: RESP 16; O2SAT 99
[2025-02-02 10:00] VITALS: BP 141/61; PULSE 85; RESP 16; TEMP 98.3; O2SAT 98
[2025-02-02] MEDS: piperacillin/tazo 3.375gm/50ml 50 ML IV SCH (10:22)
[2025-02-02] MEDS: ringers solution, lacted 1,000 ML IV SCH (10:22)
[2025-02-02] MEDS: ondansetron/PF 4mg/2ml inj IV PRN (14:54)
[2025-02-02 15:09] VITALS: BP_SYST 137; BP_SYST 144; BP_SYST 151; BP_DIAS 64; BP_DIAS 74; BP_DIAS 78; PULSE 79; PULSE 87; PULSE 90
--- NOTE | 2025-02-02 18:08 | PROGRESS NOTE ---
Daily Progress Note Providers to CC ~ Antibiotic Timeout Antibiotic Ordered?: No Subjective he is looking much better since yesterday I saw him. He is not confused able to communicate. So far he does not know that his one month back. Participated with physical therapy team today Objective Vital Signs Date Time Temp Pulse Resp B/P (MAP) Pulse Ox O2 Delivery O2 Flow Rate FiO2 02/02/25 16:50 86 02/02/25 15:09 137/64 (88) 144/74 (97) 151/78 (102) 02/02/25 13:00 16 02/02/25 11:00 Nasal Cannula 2.0 02/02/25 10:00 98.3 98 Result Diagram: 02/02/25 0546 02/02/25 0546 General-patient is chronically ill-appearing, not confused cooperated during exam HEENT-atraumatic normocephalic, neck supple without elevated JVD, No lymphadenopathy bilaterally. mild lip swelling noticed over upper and lower lips Eyes-trying to keep his eyes closed Chest-clear to auscultation bilaterally, breathing nonlabored no tachypnea, no wheezing, no crepitation, no crackles. Heart-S1-S2 normal, regular heart rate no murmur Abdomen bowel sounds positive on auscultation, soft nondistended nontender no guarding, no rigidity Skin no active skin rash Neurology- able to move all four extremity, cooperated during physical exam Extremity- no pedal edema able to move all 4 extremities Psychiatry - patient is not confused or agitated Coagulation Studies Laboratory Tests Test 01/31/25 06:51 Prothrombin Time 10.3 SECONDS (9.0-12.0) INR International Normalized Ratio 1.0 INR Coagulation Comments Problem\Assessment\Plan 1. Acute Altered Mental Status (Primary) multifactorial Differentials include: UTI-associated metabolic changes Possible gabapentin ingestion Mild rhabdomyolysis No stroke or bleed on CT Plan: Continue telemetry Neuro checks for H Mg, Phos levels normal Maintain adequate hydration, LR at 75 cc/hour, will titrate based on volume status of the patient will Hold gabapentin 2. Acute Lip Angioedema ? likely medication-induced (gabapentin vs idiopathic) No tongue swelling, stridor, respiratory distress, or airway compromise. 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 Gabapentin ingestion with history of CKD could due to reduced clearance Plan: Stopped gabapentin continue Airway monitoring q2h received IV methylprednisolone, IV diphenhydramine, IV famotidine Epinephrine IM PRN for progression Continue avoidance of CHA inhibitors for life 2. Suspected Complicated UTI (recent diagnosis) Stopped Zosyn and started on ceftriaxone UA and urine cultures we will follow the results Monitor WBC, temperatures, vitals q4h Pelvic ultrasound ordered Marked bladder distention with volume of 782 cc. Bilateral ureteral jets nonvisualized. 3. Mild Rhabdomyolysis (CK 573) Likely due to being on the floor / dehydration. IV fluids gently: 100 mL/hr (avoid CHF exacerbation given BNP 523) will Avoid nephrotoxic medications 4. Fall With Unknown Downtime CT head negative for acute injury. CT C-spine pending PT once oriented Fall precautions Continue telemetry 5. Acute renal failure on CKD Stage III On IV fluid Ringer lactate 100 mL per will Adjust all medication doses to eGFR Avoid CHA inhibitors and ARBs (past angioedema) Avoid NSAIDs We will monitor Daily BMP Dr. Cox evaluated the patient and his consult note reviewed we will follow the recommendation 6. Normocytic Anemia , RDW 16.1 Likely chronic disease / CKD We will follow iron studies, B12, folate, retic count No transfusion unless Hgb <7 or symptomatic 7. Type 2 Diabetes Mellitus, A1c 8.2 On hypo and hyperglycemic protocol Continue monitoring glucose levels 8. CAD s/p CABG / Hypertension Restarted metoprolol after med rec Continue aspirin 81 mg after med rec Do NOT restart lisinopril (CHA angioedema history in July) Monitor BP closely 9. 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 Lee started patient on Flomax and finasteride. Dr. Lee consulted on this patient in he does not recommend to put the Gray catheter or any suprapubic catheter at this point of time. As per Dr. Lee his bladder and urinary retention issue is chronic. Pelvic ultrasound ordered and results reviewed . 02/01-patient had cystoscopy, dilatation of bladder neck contraction, Gray catheterization complex done by Dr. Lee for urinary retention and rising creatinine 11. Substance use disorder: UA tox positive for marijuana Ethyl alcohol level less than 10 Acetaminophen levels low Substance abuse navigator consulted Code Status: Full code by default DVT Prophylaxis: Heparin SQ Line/tubes: P IV Nutrition: passed BSS PT: Ordered Patient's current condition is guarded we will continue to follow patient in AM . Further management as recommended by Nephrology and Urology specialist. Date of Service: Feb 02, 2025 Billing Provider: VIVEK TRAYLOR MD Common Visit Codes: [id number] INP/OBS CARE(HIGH) VIVEK TRAYLOR MD Feb 02, 2025 18:08
[2025-02-02 18:30] VITALS: BP 89/67; PULSE 74; RESP 11; TEMP 97.8; O2SAT 98
[2025-02-02 22:00] VITALS: BP 141/73; PULSE 76; RESP 15; TEMP 97.4; O2SAT 99
[2025-02-03 06:00] VITALS: BP 154/81; PULSE 71; RESP 13; TEMP 97.9; O2SAT 97
--- NOTE | 2025-02-03 06:50 | PROGRESS NOTE ---
Progress Note Dictate Providers to CC ~ Progress Note: This is a 73-year-old man with a history of stage 3 chronic kidney disease (baseline creatinine 1.16), uncontrolled type 2 diabetes, hypertension, coronary artery disease status post-CABG, prior UTI, and depression. He was brought to the ED after being found down at home for an unknown duration. On EMS arrival, he was severely disoriented, speaking nonsensically, and unable to answer questions appropriately. A gabapentin bottle was found nearby, but the pill count and prescription date were not checked, raising concern for possible ingestion. He was recently diagnosed with a UTI, but current therapy is unclear. On arrival to the ED, he was acutely confused, nonverbal, and unable to provide meaningful history. There were no focal neurological deficits. Head CT was unremarkable. He had lip swelling without tongue swelling, trauma, or respiratory distress. EKG showed sinus rhythm without conduction delays. Initial labs: WBC 11.1, creatinine 1.16, ammonia <10, BNP 523, procalcitonin negative, urine drug screen positive for marijuana, ethanol <10, glucose 153, hemoglobin 9.3, CK 573. Antibiotic Ordered?: N/A Subjective Subjective Improving every day Objective Vitals Vital Signs Date Time Temp Pulse Resp B/P (MAP) Pulse Ox O2 Delivery O2 Flow Rate FiO2 02/03/25 07:45 Nasal Cannula 1.0 02/03/25 07:32 76 02/03/25 06:00 97.9 13 154/81 (105) 97 Alert RRR w/o murmur, no JVD CTAB, no wheezes +BS, NT No edema Lab Results: 02/02/25 0546 02/02/25 0546 Coagulation Studies Laboratory Tests Test 01/31/25 06:51 Prothrombin Time 10.3 SECONDS (9.0-12.0) INR International Normalized Ratio 1.0 INR Coagulation Comments Other Results I & O 02/03/25 07:00 Intake Total 700 ml Output Total 2300 ml Balance -1600 ml Intake Oral 700 ml Output Urine Total 2300 ml Problem\Assessment\Plan Additional Plan He has acute kidney injury (SIDRA) on chronic kidney disease (CKD), with a rise in creatinine from 1.16 to 3.39 mg/dL and BUN 43 mg/dL, indicating a significant decline in renal function. The most likely etiologies are prerenal azotemia from hypoperfusion (hypotension, dehydration), nephrotoxic drug exposure (gabapentin, lorazepam), and infection-related SIDRA (recent UTI). Rhabdomyolysis is less likely given CK 573 and no myoglobinuria. The patient remains confused and disoriented, likely from SIDRA, infection, and drug effects. Acute Kidney Injury (SIDRA) on Chronic Kidney Disease (CKD) Stage 3 Likely due to a combination of volume depletion (found down, unclear oral intake), recent infection (UTI), and exposure to nephrotoxic medications (gabapentin, lorazepam). Rhabdomyolysis is unlikely given only mildly elevated CK and no myoglobinuria. Obstructive uropathy and glomerulonephritis are not supported by clinical or laboratory findings. Stop nephrotoxic agents (gabapentin, lorazepam) Continue gentle IV fluids, monitor for fluid overload, Lactated Ringers 50-75 mL/hr, try to match intake to output as close as possible Daily monitoring of renal function and electrolytes Adjust all medications for current renal function Monitor intake and output closely Acute Confusion/Delirium Improved Likely multifactorial, related to metabolic derangements from SIDRA/uremia, infection, and possible drug effects. Structural ASSISTANT PROPERTY MANAGER events are unlikely given a normal head CT and absence of focal deficits. Treat underlying causes (optimize renal function, treat infection) Avoid further sedating medications Provide supportive care: reorientation, safety measures, minimize nighttime disturbances Monitor for improvement as metabolic and infectious issues resolve Urinary Tract Infection (UTI) Ongoing treatment Recent diagnosis, likely contributing to both SIDRA and delirium. Started empiric antibiotics, adjust based on culture and renal function Monitor for clinical response and signs of sepsis Ensure adequate hydration Uncontrolled Type 2 Diabetes Mellitus Ongoing treatment Chronic condition, currently with moderate hyperglycemia. Monitor blood glucose closely Adjust insulin or oral agents as needed, considering renal function Avoid hypoglycemia, especially in the setting of SIDRA Hypertension, goal 140/90 At goal Chronic, likely contributing to CKD progression. Monitor blood pressure regularly, goal less than 140/90 in the acute care setting Adjust antihypertensive regimen as needed, considering renal function and volume status Coronary Artery Disease, Status Post CABG Stable, monitor History of atherosclerotic disease. Continue cardiac medications as appropriate, adjust for renal function Monitor for cardiac complications as indicated Depression Monitor Chronic psychiatric condition. Continue home medications if safe with current renal function Monitor for mood or behavioral changes as delirium resolves Supportive Measures Continue to evaluate Fall precautions and safety monitoring DVT prophylaxis as appropriate Nutritional support if oral intake is poor ISABELLA QUEEN III DO Feb 03, 2025 06:50
[2025-02-03 08:55] LABS: MEAN PLATELET VOLUME 7.8 FL (7.4-10.4); RED CELL DISTRIBUTION WIDTH 16.3 % (11.5-14.5)
[2025-02-03 09:27] LABS: CREATININE 1.67 MG/DL (0.60-1.10); TOTAL CARBON DIOXIDE 23.8 MMOL/L (24-32); eCRCL 39 ML/MIN; eGFR 40 ML/MIN
[2025-02-03 09:28] VITALS: BP_SYST 140; BP_SYST 154; BP_DIAS 64; BP_DIAS 77; PULSE 79; PULSE 88
[2025-02-03 10:00] VITALS: BP 141/70; PULSE 80; RESP 18; TEMP 97.9; O2SAT 97
[2025-02-03] MEDS: ALPRAZolam 0.25mg tablet PO PRN (15:57)
--- NOTE | 2025-02-03 17:42 | PROGRESS NOTE ---
Daily Progress Note Providers to CC ~ Antibiotic Timeout Antibiotic Ordered?: Yes Subjective Patient is seen in his room in presence of nursing staff Lisa today. Patient looks much better looks comfortable communicating very well. Wanted something stronger for neck pain and arm pain. Objective Vital Signs Date Time Temp Pulse Resp B/P (MAP) Pulse Ox O2 Delivery O2 Flow Rate FiO2 02/03/25 15:57 72 02/03/25 10:00 97.9 18 141/70 (93) 97 Room Air 02/03/25 07:45 1.0 Result Diagram: 02/03/25 0737 02/03/25 0737 General-patient is chronically ill-appearing, not confused cooperated well during exam HEENT-atraumatic normocephalic, neck supple without elevated JVD, No lymphadenopathy bilaterally. mild lip swelling noticed over upper and lower lips Eyes-trying to keep his eyes closed Chest-clear to auscultation bilaterally, breathing nonlabored no tachypnea, no wheezing, no crepitation, no crackles. Heart-S1-S2 normal, regular heart rate no murmur Abdomen bowel sounds positive on auscultation, soft nondistended nontender no guarding, no rigidity Skin no active skin rash Neurology- able to move all four extremity, cooperated during physical exam Extremity- no pedal edema able to move all 4 extremities Psychiatry - patient is not confused or agitated Coagulation Studies Laboratory Tests Test 01/31/25 06:51 Prothrombin Time 10.3 SECONDS (9.0-12.0) INR International Normalized Ratio 1.0 INR Coagulation Comments Problem\Assessment\Plan 1. Acute Altered Mental Status (Primary) Resolved Differentials include: UTI-associated metabolic changes Possible gabapentin ingestion Mild rhabdomyolysis No stroke or bleed on CT Plan: D/C telemetry continue Neuro checks for 12 hrs Mg, Phos levels normal Maintain adequate hydration, LR at 100 cc/hour, will titrate will Hold gabapentin 2. Acute Lip Angioedema ? likely medication-induced (gabapentin vs idiopathic) No tongue swelling, stridor, respiratory distress, or airway compromise. 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 Gabapentin ingestion with history of CKD could due to reduced clearance Plan: Stopped gabapentin continue Airway monitoring q2h received IV methylprednisolone, IV diphenhydramine, IV famotidine Epinephrine IM PRN for progression Continue avoidance of CHA inhibitors for life 2. Suspected Complicated UTI (recent diagnosis) Stopped Zosyn and started on ceftriaxone urine cultures negative so far will Monitor WBC, temperatures, vitals q4h Pelvic ultrasound ordered Marked bladder distention with volume of 782 cc. Bilateral ureteral jets nonvisualized. 3. Mild Rhabdomyolysis (CK 573) Likely due to being on the floor / dehydration. IV fluids gently: 100 mL/hr (avoid CHF exacerbation given BNP 523) will Avoid nephrotoxic medications 4. Fall With Unknown Downtime CT head negative for acute injury. CT C-spine done, There is fusion of the bilateral C2-C3 and left C7-T1 facets.multilevel degenerative changes severe at C5-C6 bilaterally. PT once oriented Fall precautions Continue telemetry 5. Acute renal failure on CKD Stage III On IV fluid Ringer lactate 100 mL per will Adjust all medication doses to eGFR Avoid CHA inhibitors and ARBs (past angioedema) Avoid NSAIDs We will monitor Daily BMP Dr. Cox evaluated and following the patient and his consult note reviewed we will follow the recommendation 6. Normocytic Anemia , RDW 16.1 Likely chronic disease / CKD We will follow iron studies, B12, folate, retic count No transfusion unless Hgb <7 or symptomatic 7. Type 2 Diabetes Mellitus, A1c 8.2 On hypo and hyperglycemic protocol Continue monitoring glucose levels 8. CAD s/p CABG / Hypertension Restarted metoprolol after med rec Continue aspirin 81 mg after med rec Do NOT restart lisinopril (CHA angioedema history in July) Monitor BP closely 9. 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 Lee started patient on Flomax and finasteride. Dr. Lee consulted on this patient in he does not recommend to put the Gray catheter or any suprapubic catheter at this point of time. As per Dr. Lee his bladder and urinary retention issue is chronic. Pelvic ultrasound ordered and results reviewed . 02/01-patient had cystoscopy, dilatation of bladder neck contraction, Gray catheterization complex done by Dr. Lee for urinary retention and rising creatinine 11. Substance use disorder: UA tox positive for marijuana Ethyl alcohol level less than 10 Acetaminophen levels low Substance abuse navigator consulted Code Status: Full code by default DVT Prophylaxis: Heparin SQ Line/tubes: P IV Nutrition: passed BSS PT: Ordered Patient's current condition is guarded we will continue to follow patient in AM . Further management as recommended by Nephrology and Urology specialist. Date of Service: Feb 03, 2025 Billing Provider: VIVEK TRAYLOR MD Common Visit Codes: [id number] INP/OBS CARE(HIGH) VIVEK TRAYLOR MD Feb 03, 2025 17:42
[2025-02-03 18:00] VITALS: BP 133/64; PULSE 81; RESP 20; TEMP 98.7; O2SAT 100
[2025-02-03 22:00] VITALS: BP 147/73; PULSE 80; RESP 18; TEMP 97.9; O2SAT 97
[2025-02-04 06:00] VITALS: BP 132/68; PULSE 78; RESP 19; TEMP 97.3; O2SAT 98
[2025-02-04 07:24] LABS: MEAN PLATELET VOLUME 7.8 FL (7.4-10.4); RED CELL DISTRIBUTION WIDTH 16.4 % (11.5-14.5)
[2025-02-04 07:40] LABS: CREATININE 1.30 MG/DL (0.60-1.10); TOTAL CARBON DIOXIDE 23.0 MMOL/L (24-32); eCRCL 51 ML/MIN; eGFR 54 ML/MIN
[2025-02-04 08:30] VITALS: RESP 16; O2SAT 97
[2025-02-04 09:45] VITALS: BP 173/80; PULSE 75; RESP 18; TEMP 98.2; O2SAT 97
[2025-02-04 09:46] VITALS: RESP 14
[2025-02-04 09:54] VITALS: BP_SYST 157; BP_SYST 173; BP_DIAS 80; BP_DIAS 95; PULSE 75; PULSE 77
[2025-02-04 16:46] VITALS: BP_SYST 140; PULSE 80
[2025-02-04] MEDS ORDERED: GLUCERNA THERAPEUTIC NUTRITION 237mL bottle PO SCH (18:00)
--- NOTE | 2025-02-04 18:07 | DISCHARGE SUMMARY ---
Discharge Summary Providers to CC ~ Discharge Summary Admission Diagnosis: ALOC Hospital Course DATE OF ADMISSION: 01/30/2025 DATE OF DISCHARGE: 02/04/2025 CBC testing done on February 04, 2025 WBC 6.1 hemoglobin 10.4 hematocrit 30.7 platelet count 245. Sed rate 48. Serum chemistry done on February 04, 2025 sodium 138 potassium 4.4 creatinine 1.30 GFR 54. Hemoglobin A1c 8.2. TIBC 281, proBNP 523, CK 1425. Culture showed no growth after four days. Urine culture showed no growth after two days CT ABDOMEN PELVISIMPRESSION: Diffuse bladder wall thickening with mild surrounding inflammatory changes. Correlate for cystitis. No hydronephrosis. Small superior ventral hernia containing loop of transverse colon. No obstruction. ULTRASOUND KIDNEY NON VASC IMPRESSION: 1. Unremarkable examination. CT CERVICAL SPINE IMPRESSION: acute noncontrast CT abnormalityLimited exam with no of the cervical spine. US PELVIS/WITH DUPLEX Impression: Marked bladder distention with volume of 782 cc. Bilateral ureteral jets nonvisualized. ECHOCARDIOGRAMConclusion Normal LV size and function. Mild septal hypertrophy. LVEF is 55%. RV appears at least mildly dialted with normal systolic function. LA appears at least mildly dilated. Trileaflet AV appears moderately sclerotic without significant stenosis or insufficiency. Mild MV annular calcification without stenosis. Trace regurgitation. TV appears structurally normal with trace regurgitation. Normal pericardium. No effusion. CT HEADIMPRESSION: No acute intracranial abnormality. Atrophy and chronic small-vessel ischemic changes CHEST,SINGLE VIEWIMPRESSION: Mild vascular congestion Discharge Diagnosis\\Comment: Acute Altered Mental Status Resolved Mild rhabdomyolysis Possible gabapentin ingestion Acute Lip Angioedema ? likely medication-induced (gabapentin vs idiopathic) Acute UTI falling Acute renal failure on CKD Stage III Normocytic Anemia Type 2 Diabetes Mellitus, A1c 8.2 CAD s/p CABG / Hypertension BPH acute urinary retention, westfall placement Substance use disorder Chronic pain syndrome Operations\\Procedures: Westfall catheterization complex Consultants: Dr. Lee Complications: None Condition on DC: Stable for transfer Discharge Summary: Per admitting provider's history and physical note" A 73-year-old male with a history of CKD III, uncontrolled type 2 diabetes, hypertension, CAD s/p CABG, prior UTI, and depression was brought to the ED after being found on the ground at home with unknown downtime. Per EMS, he was severely disoriented, yelling cold, and unable to answer questions appropriately. A gabapentin bottle was found next to him, raising concern for possible ingestion, though the number of tablets taken is unknown. EMS also reported that he had recently been diagnosed with a UTI. On arrival, the patient is awake but acutely confused, non-verbal, and unable to provide meaningful history. No focal neurological deficits can be reliably assessed. He shows lip swelling, but no tongue swelling or trauma and no respiratory distress. ED course: EKG shows sinus rhythm with nonspecific intraventricular conduction delay. Initial labs show WBC 11.1, Cr 1.16 (baseline CKD), ammonia <10, BNP 523, procalcitonin negative, UDS positive for marijuana, ethanol <10, glucose 153, Hgb 9.3, and CK 573, consistent with mild rhabdomyolysis. CT head today shows no acute intracranial abnormalities, only chronic small-vessel ischemic changes and age-related atrophy. There is no available family contact information in the chart and and attempt to reach the listed emergency contact was unsuccessful and the phone line states mailbox full and no message could be left" During hospitalization patient was treated for 1. Acute Altered Mental Status (Primary) Resolved Differentials include: UTI-associated metabolic changes Possible gabapentin ingestion Mild rhabdomyolysis No stroke or bleed on CT Plan: D/C telemetry continue Neuro checks for 12 hrs Mg, Phos levels normal Maintain adequate hydration, LR at 100 cc/hour, will titrate will Hold gabapentin 2. Acute Lip Angioedema ? likely medication-induced (gabapentin vs idiopathic) No tongue swelling, stridor, respiratory distress, or airway compromise. 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 Gabapentin ingestion with history of CKD could due to reduced clearance Plan: Stopped gabapentin continue Airway monitoring q2h received IV methylprednisolone, IV diphenhydramine, IV famotidine Epinephrine IM PRN for progression Continue avoidance of CHA inhibitors for life 2. Suspected Complicated UTI (recent diagnosis) Stopped Zosyn and started on ceftriaxone urine cultures negative so far will Monitor WBC, temperatures, vitals q4h Pelvic ultrasound ordered Marked bladder distention with volume of 782 cc. Bilateral ureteral jets nonvisualized. 3. Mild Rhabdomyolysis (CK 573) Likely due to being on the floor / dehydration. IV fluids gently: 100 mL/hr (avoid CHF exacerbation given BNP 523) will Avoid nephrotoxic medications 4. Fall With Unknown Downtime CT head negative for acute injury. CT C-spine done, There is fusion of the bilateral C2-C3 and left C7-T1 facets.multilevel degenerative changes severe at C5-C6 bilaterally. PT once oriented Fall precautions Continue telemetry 5. Acute renal failure on CKD Stage III On IV fluid Ringer lactate 100 mL per will Adjust all medication doses to eGFR Avoid CHA inhibitors and ARBs (past angioedema) Avoid NSAIDs We will monitor Daily BMP Dr. Cox evaluated and following the patient and his consult note reviewed we will follow the recommendation 6. Normocytic Anemia , RDW 16.1 Likely chronic disease / CKD We will follow iron studies, B12, folate, retic count No transfusion unless Hgb <7 or symptomatic 7. Type 2 Diabetes Mellitus, A1c 8.2 On hypo and hyperglycemic protocol Continue monitoring glucose levels 8. CAD s/p CABG / Hypertension Restarted metoprolol after med rec Continue aspirin 81 mg after med rec Do NOT restart lisinopril (CHA angioedema history in July) Monitor BP closely 9. 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 Lee started patient on Flomax and finasteride. Dr. Lee consulted on this patient in he does not recommend to put the Westfall catheter or any suprapubic catheter at this point of time. As per Dr. Lee his bladder and urinary retention issue is chronic. Pelvic ultrasound ordered and results reviewed . 02/01-patient had cystoscopy, dilatation of bladder neck contraction, Westfall catheterization complex done by Dr. Lee for urinary retention and rising creatinine 11. Substance use disorder: UA tox positive for marijuana Ethyl alcohol level less than 10 Acetaminophen levels low Substance abuse navigator consulted Patient is feeling better she has been afebrile and getting discharged to rehab in stable condition. Medication reconciliation done for rehab facility. Patient is seen and examined on the day of discharge. All labs, diagnostic workup and discharge plan discussed with patient before her discharge. All questions and queries answered to the best of my professional medical knowledge. I heard patient's concerns and address appropriately. Physical therapy team recommended rehab discharge for patient . tire center manager Martine involved in patient's discharge plan. Patient needs follow-up with Dr. Follow for Westfall catheterization. [facility]. General-patient is chronically ill-appearing, not confused cooperated well during exam HEENT-atraumatic normocephalic, neck supple without elevated JVD, No lymphadenopathy bilaterally. mild lip swelling noticed over upper and lower lips Eyes-trying to keep his eyes closed Chest-clear to auscultation bilaterally, breathing nonlabored no tachypnea, no wheezing, no crepitation, no crackles. Heart-S1-S2 normal, regular heart rate no murmur Abdomen bowel sounds positive on auscultation, soft nondistended nontender no guarding, no rigidity Skin no active skin rash Neurology- able to move all four extremity, cooperated during physical exam Extremity- no pedal edema able to move all 4 extremities Psychiatry - patient is not confused or agitated *Problems/Diagnosis: (1) Metabolic encephalopathy Status: Acute Total Time Spent on D/C: > 30 Minutes Date of Service: Feb 04, 2025 Billing Provider: VIVEK TRAYLOR MD Common Visit Codes: [id number] DISCH DAY >30min VIVEK TRAYLOR MD Feb 04, 2025 17:59
--- NOTE | 2025-02-04 19:19 | PROGRESS NOTE ---
Progress Note Dictate Providers to CC ~ Progress Note: This is a 73-year-old man with a history of stage 3 chronic kidney disease (baseline creatinine 1.16), uncontrolled type 2 diabetes, hypertension, coronary artery disease status post-CABG, prior UTI, and depression. He was brought to the ED after being found down at home for an unknown duration. On EMS arrival, he was severely disoriented, speaking nonsensically, and unable to answer questions appropriately. A gabapentin bottle was found nearby, but the pill count and prescription date were not checked, raising concern for possible ingestion. He was recently diagnosed with a UTI, but current therapy is unclear. On arrival to the ED, he was acutely confused, nonverbal, and unable to provide meaningful history. There were no focal neurological deficits. Head CT was unremarkable. He had lip swelling without tongue swelling, trauma, or respiratory distress. EKG showed sinus rhythm without conduction delays. Initial labs: WBC 11.1, creatinine 1.16, ammonia <10, BNP 523, procalcitonin negative, urine drug screen positive for marijuana, ethanol <10, glucose 153, hemoglobin 9.3, CK 573. Antibiotic Ordered?: N/A Subjective Subjective Doing well, much improved, likely to discharge home today Objective Vitals Vital Signs Date Time Temp Pulse Resp B/P (MAP) Pulse Ox O2 Delivery O2 Flow Rate FiO2 02/04/25 16:46 80 02/04/25 09:54 157/95 (115) 02/04/25 09:46 14 02/04/25 09:45 98.2 97 Room Air 02/03/25 07:45 1.0 Alert RRR w/o murmur CTAB +BS, Nt No edema Lab Results: 02/04/25 0638 02/04/25 0638 Coagulation Studies Laboratory Tests Test 01/31/25 06:51 Prothrombin Time 10.3 SECONDS (9.0-12.0) INR International Normalized Ratio 1.0 INR Coagulation Comments HEART Score I & O 02/04/25 07:00 Intake Total 1740 ml Output Total 6425 ml Balance -4685 ml Intake Oral 1740 ml Output Urine Total 6425 ml # Bowel Movements 1 Problem\Assessment\Plan Additional Plan He has acute kidney injury (SIDRA) on chronic kidney disease (CKD), with a rise in creatinine from 1.16 to 3.39 mg/dL and BUN 43 mg/dL, indicating a significant decline in renal function. The most likely etiologies are prerenal azotemia from hypoperfusion (hypotension, dehydration), nephrotoxic drug exposure (gabapentin, lorazepam), and infection-related SIDRA (recent UTI). Rhabdomyolysis is less likely given CK 573 and no myoglobinuria. The patient remains confused and disoriented, likely from SIDRA, infection, and drug effects. Acute Kidney Injury (SIDRA) on Chronic Kidney Disease (CKD) Stage 3 Improved Likely due to a combination of volume depletion (found down, unclear oral intake), recent infection (UTI), and exposure to nephrotoxic medications (gabapentin, lorazepam). Rhabdomyolysis is unlikely given only mildly elevated CK and no myoglobinuria. Obstructive uropathy and glomerulonephritis are not supported by clinical or laboratory findings. Stop nephrotoxic agents (gabapentin, lorazepam) Continue gentle IV fluids, monitor for fluid overload, Lactated Ringers 50-75 mL/hr, try to match intake to output as close as possible Daily monitoring of renal function and electrolytes Adjust all medications for current renal function Monitor intake and output closely Acute Confusion/Delirium Improved Likely multifactorial, related to metabolic derangements from SIDRA/uremia, infection, and possible drug effects. Structural [employer] events are unlikely given a normal head CT and absence of focal deficits. Treat underlying causes (optimize renal function, treat infection) Avoid further sedating medications Provide supportive care: reorientation, safety measures, minimize nighttime disturbances Monitor for improvement as metabolic and infectious issues resolve Urinary Tract Infection (UTI) Ongoing treatment Recent diagnosis, likely contributing to both SIDRA and delirium. Started empiric antibiotics, adjust based on culture and renal function Monitor for clinical response and signs of sepsis Ensure adequate hydration Uncontrolled Type 2 Diabetes Mellitus Ongoing treatment Chronic condition, currently with moderate hyperglycemia. Monitor blood glucose closely Adjust insulin or oral agents as needed, considering renal function Avoid hypoglycemia, especially in the setting of SIDRA Hypertension, goal 140/90 At goal Chronic, likely contributing to CKD progression. Monitor blood pressure regularly, goal less than 140/90 in the acute care setting Adjust antihypertensive regimen as needed, considering renal function and volume status Coronary Artery Disease, Status Post CABG Stable, monitor History of atherosclerotic disease. Continue cardiac medications as appropriate, adjust for renal function Monitor for cardiac complications as indicated Depression Monitor Chronic psychiatric condition. Continue home medications if safe with current renal function Monitor for mood or behavioral changes as delirium resolves Supportive Measures Continue to evaluate Fall precautions and safety monitoring DVT prophylaxis as appropriate Nutritional support if oral intake is poor ISABELLA QUEEN III DO Feb 04, 2025 19:19
== END 2025-02-04 17:15 | DRG 915 ==
LOC: ER 15:13 → ED HOLD 20:14 → ORTHO 4S 01-31 00:20
PROVIDERS: ADMIT Internal Medicine Critical Care Medicine; ATTEND Internal Medicine
PROC: 0T7C8ZZ Dilation of Bladder Neck, Via Natural or Artificial Opening Endoscopic (ICD-10-PCS; 2025-02-01)
PROC: 0T9B80Z Drainage of Bladder with Drainage Device, Via Natural or Artificial Opening Endoscopic (ICD-10-PCS; principal; 2025-02-01 16:31)
DX: T78.3XXA Angioneurotic edema, initial encounter (principal); G93.41 Metabolic encephalopathy; N17.0 Acute kidney failure with tubular necrosis; M62.82 Rhabdomyolysis; I12.9 Hypertensive chronic kidney disease with stage 1 through stage 4 chronic kidney disease, or unspecified chronic kidney disease; E11.22 Type 2 diabetes mellitus with diabetic chronic kidney disease; N18.30 Chronic kidney disease, stage 3 unspecified; F32.A Depression, unspecified; E86.0 Dehydration; Z96.653 Presence of artificial knee joint, bilateral; Z96.643 Presence of artificial hip joint, bilateral; N40.1 Benign prostatic hyperplasia with lower urinary tract symptoms; R33.8 Other retention of urine; N32.0 Bladder-neck obstruction; T42.6X5A Adverse effect of other antiepileptic and sedative-hypnotic drugs, initial encounter; Y84.8 Other medical procedures as the cause of abnormal reaction of the patient, or of later complication, without mention of misadventure at the time of the procedure; I25.10 Atherosclerotic heart disease of native coronary artery without angina pectoris; Z78.1 Physical restraint status; I45.9 Conduction disorder, unspecified; Z87.440 Personal history of urinary (tract) infections; Z95.1 Presence of aortocoronary bypass graft; Z79.84 Long term (current) use of oral hypoglycemic drugs; Z79.899 Other long term (current) drug therapy; Z79.82 Long term (current) use of aspirin; Z79.4 Long term (current) use of insulin; Y92.89 Other specified places as the place of occurrence of the external cause
CPT/HCPCS: 36415; 36600; 70450; 71045; 72125; 74176; 76770; 76857; 80048; 80053; 80305; 80320; 80329; 81001; 82140; 82550; 82570; 82607; 82728; 82803; 82948; 83036; 83540; 83550; 83605; 83735; 83874; 83880; 83930; 83935; 84100; 84133; 84145; 84300; 84540; 85018; 85025; 85045; 85610; 85651; 87040; 87081; 87088; 87207; 92508; 92616; 93005; 93308; 96374; 97161; 97530; 99291; A4340; A4615; A4618; A5200; A6213; A6590; C1758; C1769; G0378; J1200; J1630; J1644; J1815; J2060; J2270; J2405; J2543; J2704; J2919; J3360; J7030; J7120